=== PATIENT | male | born 1980 | race Caucasian/White ===

== ENCOUNTER 2021-08-12 19:51 | Inpatient (IN) | payer OTHER, SELFPAY ==
[2021-08-12 20:20] VITALS: BMI 51.5
[2021-08-12] MEDS: ALPRAZolam 0.5 MG TABLET 2 MG PO (21:01)
[2021-08-12] MEDS: Atorvastatin Calcium 10 MG TABLET PO (21:01)
[2021-08-12] MEDS: Amphetamine Mixed Salts 20 MG TABLET 30 MG PO (21:28)
[2021-08-12 22:19] VITALS: BP 98/50; PULSE 100; RESP 20; TEMP 36.6; O2SAT 96
--- NOTE | 2021-08-12 22:20 | PC.ADMIT ---
Pt is a 41y/o cisgender, , Niuean speaking who presented to the [facility] via ambulance, according to report from care team. Pt is alert and oriented X4, Jovial with pleasant affect.VSS, covid negative, Tox screen positive for cocaine, marijuana, amphetamine. Pt denies drug use when asked, endorsing the use of Marijuana. Pt reports SI of OD or cutting himself. Speech is clear with normal rhythm tone and arthur. Pt is calm and cooperative, reports that his life started taking a downward dive after his girlfriend left him. Pt denies SI/Depression. Pt states that he has a positive support system from both parents whom he shares the same dwelling with. Pt reports difficulty staying asleep. Admission orders obtained.
--- NOTE | 2021-08-13 | ECG_ITS ---
Test Reason : psychotropic med / htn Blood Pressure : / mmHG Vent. Rate : 108 BPM Atrial Rate : 108 BPM P-R Int : 164 ms QRS Dur : 098 ms QT Int : 328 ms P-R-T Axes : 046 027 055 degrees QTc Int : 439 ms Sinus tachycardia Otherwise normal ECG No previous ECGs available Referred By: Pascale Pedro Electronically Signed By:DIANA HENDERSON
[2021-08-13] MEDS: ALPRAZolam 0.5 MG TABLET 2 MG PO ×4 (05:02→20:09)
[2021-08-13 06:00] VITALS: BP 118/68; PULSE 101; RESP 14; TEMP 36.6; O2SAT 94
[2021-08-13] MEDS: lamoTRIgine 100 MG TABLET 300 MG PO (08:40)
[2021-08-13] MEDS: glipiZIDE XL 5 MG TAB.ER.24 PO (08:41)
[2021-08-13] MEDS: ARIPiprazole 20 MG TABLET PO (08:41)
[2021-08-13] MEDS: metFORMIN HCl 1,000 MG TABLET 1000 MG PO ×2 (08:41→16:39)
[2021-08-13] MEDS: lisinopriL 20 MG TABLET PO (08:42)
[2021-08-13] MEDS: Venlafaxine HCl ER 75 MG CAP.ER.24H 225 MG PO (08:42)
[2021-08-13] MEDS: Amphetamine Mixed Salts 20 MG TABLET 30 MG PO ×4 (08:43→20:08)
[2021-08-13 09:17] LABS: Estimated Average Glucose 160 mg/dL; Hemoglobin A1c % 7.2 %
[2021-08-13 09:31] LABS: Creatinine Clr Calc Pharmacy 157.5; Estimated Glomerular Filt Rate > 60
[2021-08-13 09:33] LABS: Alanine Aminotransferase 31 U/L (0-40); Albumin Level 4.1 g/dL (3.5-5.0); Alkaline Phosphatase 95 U/L (39-117); Aspartate Amino Transferase 18 U/L (5-37); Bilirubin Direct 0.2 mg/dL (0.0-0.5); Bilirubin Total 0.4 mg/dL (0.0-1.0); Cholesterol 159 mg/dL; HDL Cholesterol 26 mg/dL; LDL Cholesterol Calculated 99 mg/dl; Magnesium 2.1 mg/dL (1.6-2.6); Total Protein 6.6 g/dL (6.5-8.0); Triglycerides 173 mg/dL
[2021-08-13 09:56] LABS: Free T4 (Free Thyroxine) 0.88 ng/dL (0.71-1.85); Thyroid Stimulating Hormone 1.65 uIU/mL (0.32-4.0)
[2021-08-13 10:18] LABS: Vitamin B12 264 pg/mL (200-900)
--- NOTE | 2021-08-13 12:52 | P.HPPS_ITS ---
HPI Date of Service: 08/13/21 Chief Complaint: Overdose on Rx, bipolar depression Sources of Information: patient interviewed, chart reviewed and crisis/core team assessment reviewed Additional Sources of Information: Telephone call with Dr. Jt Nieto, pt's psychiatrist, who prescribes Xanax 2 mg 4 times daily; Adderall 30 mg 4 times daily, Lamictal ER 300 mg daily, Abilify 20 mg daily, Venlafaxine ER 225 mg daily. Pt has worked with Dr. Nieto for ~3 years. He is diagnosed with Borderline Personality Disorder and Substance Use Disorder. This regime has been effective for pt by history and Dr. Nieto is willing to continue with patient upon discharge. HPI Subjective Notes: Couch Warning and Conditional Voluntary Healthcare Proxy: No Guardianship: No Medical Problems Affecting Mental Status: No Narrative: 41 yo male, history of borderline personality disorder, alcohol use disorder in remission, and polysubstance abuse (cocaine/cannabis) presents in transfer from [facility] ER for admission s/p reported suicide attempt via OD of a reported combination of lisinopril and clonidine. This after being discharged from a 10 day in patient stay with [facility], representing in the ER for 5 hous, and being sent home. Pt reports he does not believe he wanted to , but wanted his pain to stop. Pt reports recent stressors-break up of a relationship, mom in [place] with new CVA currently in rehab and he is worried about her. States he has a 14 yo son, Jerel, who is his motivation for his 9 years of sobriety and is wanting to work on being stable, achieving balance, improved coping skills, increasing self-confidence. Reports he has not participated in therapy as much as he should have- I did not get to the root of the problem-I have no self-confidence, am co-dependent and angry- I do not like myself. States he was IP for 12 days and returned to ER on discharge day with SI. Reports he has [facility] care mgt and hopes to transfer to this area and get a alf assignment and a respite placement. Currently homeless and staying with friends. Past Psychiatric History: IP: 2021-3; 2020-5; 2019-7; [id number]; 2010-05 Total-17 OP: Therapy: Milagro Cedeno Medication: Dr. Jt Nieto [phone] DM: Manish Dill Trials: Several SA: Recent OD; Clonidine 2020 SIBS: Cutting Medical Evaluation Reviewed: Hospitalist Regina Pending [facility] Medical History (Updated 08/13/21 @ 14:56 by Pascale Pedro, SUSAN) Alcohol use disorder, severe, in sustained remission Bipolar II disorder Borderline personality disorder PTSD (post-traumatic stress disorder) Narrative: HTN-Lisinopril EHIKE he thinks, untreated Plaque Psoriasis-undiagnosed with sx present DM-Metformin, Glipizide HLD-Atorvastatin COVID-history, Has had Adam/Adam 2in1 vaccination he reports TIA x2 Denies TBI Seizure history-last in 2012-reports they were not withdrawal related Family History: ?Biological father with Bipolar Disorder No suicides No addiction Social History: Two brothers, one in [place], one in [place]. SPED throughout schooling, Participated in sports. Graduated 1997-vocational [employer] No college. 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 Substance History: Sober from alcohol since 11/14/12 Cannabis use Cocaine positive tox Trauma History: Emotional Diagnostics Vital Signs (24Hr): Vital Signs - 24 hr 08/12/21 22:19 08/13/21 06:00 Temperature 97.9 F 98 F Pulse Rate 100 101 H Respiratory Rate 20 14 Blood Pressure 98/50 L 118/68 Pulse Oximetry 96 94 BMI result Body Mass Index 51.5 Labs Results: 08/13/21 08:04 Labs: Laboratory Results - last 48 hr 08/13/21 08/13/21 08/13/21 08:04 08:04 08:04 Creatinine Estim Creat Clear Calc Estimated GFR Estimat Average Glucose 160 Hemoglobin A1c % 7.2 Magnesium 2.1 Total Bilirubin 0.4 Direct Bilirubin 0.2 AST 18 ALT 31 Alkaline Phosphatase 95 Total Protein 6.6 Albumin 4.1 Triglycerides 173 Cholesterol 159 LDL Cholesterol, Calc 99 HDL Cholesterol 26 Vitamin B12 264 Folate 11.0 TSH 1.65 Free T4 0.88 08/13/21 08:04 Creatinine 0.97 Estim Creat Clear Calc 157.5 Estimated GFR > 60 Estimat Average Glucose Hemoglobin A1c % Magnesium Total Bilirubin Direct Bilirubin AST ALT Alkaline Phosphatase Total Protein Albumin Triglycerides Cholesterol LDL Cholesterol, Calc HDL Cholesterol Vitamin B12 Folate TSH Free T4 EKG EKG: reviewed EKG Comment: 08/13/21 sinus tachycardia, normal ekg, vent rate 108, QTc 439 Meds/Allergies Meds Home Medications Acetaminophen (Acetaminophen 325 Mg Tablet) 650 mg PO Q6H PRN PRN Reason: Headache/Pain Mild Scale (1-3) Al Hydroxide/Mg Hydroxide (Magnesium Hydrox/Alum Hydrox 30 Ml Oral.Susp) 30 ml PO Q6H PRN PRN Reason: Heartburn/Nausea Alprazolam (Alprazolam 0.5 Mg Tablet) 2 mg PO QID ON LICENSE OF [facility] Last Admin: 08/13/21 12:41 Dose: 2 mg Documented by: Amphetamine/Dextroamphetamine (Amphetamine Mixed Salts 20 Mg Tablet) 30 mg PO QID ON LICENSE OF [facility] Last Admin: 08/13/21 12:07 Dose: 30 mg Documented by: Aripiprazole (Aripiprazole 20 Mg Tablet) 20 mg PO DAILY ON LICENSE OF [facility] Last Admin: 08/13/21 08:41 Dose: 20 mg Documented by: Atorvastatin Calcium (Atorvastatin Calcium 10 Mg Tablet) 10 mg PO BEDTIME ON LICENSE OF [facility] Last Admin: 08/12/21 21:01 Dose: 10 mg Documented by: Glipizide (Glipizide Xl 5 Mg Tab.Er.24) 5 mg PO DAILY ON LICENSE OF [facility] Last Admin: 08/13/21 08:41 Dose: 5 mg Documented by: Hydroxyzine HCl (Hydroxyzine Hcl 25 Mg Tablet) 25 mg PO Q6H PRN PRN Reason: Anxiety Lamotrigine (Lamotrigine 100 Mg Tablet) 150 mg PO BID ON LICENSE OF [facility] Lisinopril (Lisinopril 20 Mg Tablet) 20 mg PO DAILY ON LICENSE OF [facility]; Protocol Last Admin: 08/13/21 08:42 Dose: 20 mg Documented by: Magnesium Hydroxide (Milk Of Magnesia 30 Ml Oral.Susp) 30 ml PO DAILY PRN PRN Reason: Constipation Metformin HCl (Metformin Hcl 1,000 Mg Tablet) 1,000 mg PO BIDWM ON LICENSE OF [facility] Last Admin: 08/13/21 08:41 Dose: 1,000 mg Documented by: Trazodone HCl (Trazodone Hcl 50 Mg Tablet) 50 mg PO BEDTIME PRN PRN Reason: Insomnia Venlafaxine HCl (Venlafaxine Hcl Er 75 Mg Cap.Er.24h) 225 mg PO DAILY [facility] Last Admin: 08/13/21 08:42 Dose: 225 mg Documented by: Allergies Allergies Allergy/AdvReac Type Severity Reaction Status Date / Time chlorpromazine Allergy Mild Hives Verified 08/12/21 20:11 haloperidol [From Haldol] Allergy Mild Hives Verified 08/12/21 20:11 olanzapine [From Zyprexa] Allergy Mild Hives Verified 08/12/21 20:11 risperidone [From Risperdal] Allergy Mild Hives Verified 08/12/21 20:11 Mental Status Exam Mental Status Exam Patient Appearance: Appropriate Patient Orientation: Person, Place, Time and Situation Level of Consciousness: Alert Patient Behavior: Appropriate, Talkative, Cooperative and Good Eye Contact Mood Description: Depressed, Anxious and Apprehensive Affect Description: Constricted Patient Cognition Impaired: No Ability to Follow Directions: Good Speech Pattern: Spontaneous Speech Memory Description: Intact Hallucinations: None Delusions: Not Present Perceptual Disturbances: Depersonalization and Derealization Thought Process: Rumination Thought Content: positive for [place], positive for Circumstantial, positive for Goal Oriented and positive for Suicidal Ideation Depressive Symptoms: Increased Anxiety, Insomnia, Diff. Making Decisions, Difficulty Sleeping, Loss of Int. in Activity, Feelings of Worthlessness, Hopelessness, Isolating-Friends/Family, Feelings of Guilt, Unhappiness, Increased Fatigue, Thoughts of /Suicide, Low Self Esteem, Loss of Energy and Difficulty Concentrating Judgement: Fair Assessment & Plan Assessment & Plan (1) Bipolar II disorder: Status: Acute Code(s): F31.81 - Bipolar II disorder (2) PTSD (post-traumatic stress disorder): Status: Acute Code(s): F43.10 - Post-traumatic stress disorder, unspecified (3) Cannabis use disorder, moderate, dependence: Status: Acute Code(s): F12.20 - Cannabis dependence, uncomplicated (4) Cocaine use disorder, moderate, dependence: Status: Acute Code(s): F14.20 - Cocaine dependence, uncomplicated (5) Borderline personality disorder: Status: Acute Code(s): F60.3 - Borderline personality disorder Plan 41 yo male, hx of PTSD, Bipolar II, Borderline Personality Disorder, admitted after being out of hospital for approx 1 day and taking a reported OD of combi spike clonidine and lisinopril. Pt reports several issues with self-esteem, poor coping, and difficulty dealing with the loss of a relationship recently and with his mom having a recent CVA (lives in [facility]). Pt able to contract for safety on the unit. Requests [facility] area transfer to [facility] from [facility] and alf placement. Call to pt's out patient MD Dr. Nieto. Pt and Dr. Nieto are satisfied with regime. Dr. Nieto encourages changes if we believe they will be of help. Pt is mainly treated for Borderline Personality and substance abuse per Dr. Nieto and is welcome to return for treatment upon discharge. Patient educated on: therapeutic strategies Informed Consent: understands and further education needed Reason for continued inpatient stay Substantial Risk for: harm to self, inability to function and rapid decompensation
--- NOTE | 2021-08-13 14:24 | HO.PM.IMCN ---
History of Present Illness Data of Consult Service Date: 08/13/21 Requesting physician: Joy Moore Primary Care Provider: Unknown Physician HPI Reason for consult: medical management 41-year-old gentleman admitted to as a transfer from [facility] due to bipolar disorder, depression, overdose on treatment, patient admits to history of diabetes mellitus, hyperlipidemia and hypertension, complaining of rash both upper and lower extremity without associated itching, no allergy symptoms, denies fever , chills, denies chest pain, palpitation, denies shortness of breath, denies lightheadedness, dizziness or generalized weakness patient is compliant with home medications and admits to good blood sugar control at home. Review of Systems Review of Systems: General no headache no dizziness no fever chills. CVS no chest pain, no palpitation. Respiratory no cough, no sob. Gastrointestinal no nausea, no vomiting, no abdominal pain Yes all other systems are reviewed and are negative PMFSH Pertinent family history: mother had CVA in her 70s, not aware of biological father has 2 brothers healthy, no history of premature coronary artery disease or colon cancer. Social History Household Members: Family Household Members Other:: Parents Housing: House Do you presently have visiting nurse or other home services: No Patient Tobacco Use Status: Never used Tobacco Substance Use Type: Marijuana and Caffiene Substance Use Frequency: Daily Last Used Substance: Days (ago) Currently Displaying Signs/Symptoms of Drug Intoxication Withdrawal: No Any prior treatment program specific to substance use: No Have you been hit, kicked, punched, or otherwise hurt by someone within the past year? If so, by whom?: No Do you feel safe in your current relationship?: No Current Relationship Is there a partner from a previous relationship who is making you feel unsafe now?: No Are you made to feel afraid or neglected: No Spiritual Healthcare Practices: N/A Judaism Healthcare Practices: N/A Cultural Healthcare Practices: N/A Advance Directives: No Advance Directives Information Provided: No Advance Directives on File: No Do you have thoughts of harming others: None Do you have a plan to hurt others: No Plan Recently lost weight without trying: No Eating poorly because of decreased appetite: No Nutrition Risks: No Nutritional Risk Poor oral hygiene: No Meds Allergies Allergy/AdvReac Type Severity Reaction Status Date / Time chlorpromazine Allergy Mild Hives Verified 08/12/21 20:11 haloperidol [From Haldol] Allergy Mild Hives Verified 08/12/21 20:11 olanzapine [From Zyprexa] Allergy Mild Hives Verified 08/12/21 20:11 risperidone [From Risperdal] Allergy Mild Hives Verified 08/12/21 20:11 Active Medications: Current Medications Acetaminophen (Acetaminophen 325 Mg Tablet) 650 mg PO Q6H PRN PRN Reason: Headache/Pain Mild Scale (1-3) Al Hydroxide/Mg Hydroxide (Magnesium Hydrox/Alum Hydrox 30 Ml Oral.Susp) 30 ml PO Q6H PRN PRN Reason: Heartburn/Nausea Alprazolam (Alprazolam 0.5 Mg Tablet) 2 mg PO QID [facility] Last Admin: 08/13/21 12:41 Dose: 2 mg Documented by: Amphetamine/Dextroamphetamine (Amphetamine Mixed Salts 20 Mg Tablet) 30 mg PO QID [facility] Last Admin: 08/13/21 12:07 Dose: 30 mg Documented by: Aripiprazole (Aripiprazole 20 Mg Tablet) 20 mg PO DAILY [facility] Last Admin: 08/13/21 08:41 Dose: 20 mg Documented by: Atorvastatin Calcium (Atorvastatin Calcium 10 Mg Tablet) 10 mg PO BEDTIME [facility] Last Admin: 08/12/21 21:01 Dose: 10 mg Documented by: Glipizide (Glipizide Xl 5 Mg Tab.Er.24) 5 mg PO DAILY [facility] Last Admin: 08/13/21 08:41 Dose: 5 mg Documented by: Hydroxyzine HCl (Hydroxyzine Hcl 25 Mg Tablet) 25 mg PO Q6H PRN PRN Reason: Anxiety Lamotrigine (Lamotrigine 100 Mg Tablet) 150 mg PO BID [facility] Lisinopril (Lisinopril 20 Mg Tablet) 20 mg PO DAILY [facility]; Protocol Last Admin: 08/13/21 08:42 Dose: 20 mg Documented by: Magnesium Hydroxide (Milk Of Magnesia 30 Ml Oral.Susp) 30 ml PO DAILY PRN PRN Reason: Constipation Metformin HCl (Metformin Hcl 1,000 Mg Tablet) 1,000 mg PO BIDWM [facility] Last Admin: 08/13/21 08:41 Dose: 1,000 mg Documented by: Trazodone HCl (Trazodone Hcl 50 Mg Tablet) 50 mg PO BEDTIME PRN PRN Reason: Insomnia Venlafaxine HCl (Venlafaxine Hcl Er 75 Mg Cap.Er.24h) 225 mg PO DAILY [facility] Last Admin: 08/13/21 08:42 Dose: 225 mg Documented by: Physical Exam Vital Signs and Narrative: Vital Signs: Last Vital Signs Temp 98 F 08/13/21 06:00 Pulse 101 H 08/13/21 06:00 Resp 14 08/13/21 06:00 BP 118/68 08/13/21 06:00 Pulse Ox 94 08/13/21 06:00 BMI result Body Mass Index 51.5 Const: Other: General Awake alert, no acute distress. HEENT anicteric sclera Neck no JVD. CVS regular rate rhythm, Respiratory lungs clear to auscultation, no respiratory distress, no wheeze, no rhonchi. Gastrointestinal abdomen soft, nontender, bowel sounds audible Extremities no edema. Neuro nonfocal Skin multiple circular dry patches of rash both lower extremities/ elbow/ dorsum of hand Results Labs CBC and Chem 7: 08/13/21 08:04 Labs: Laboratory Results - last 24 hr 08/13/21 08/13/21 08/13/21 08:04 08:04 08:04 Estim Creat Clear Calc Estimated GFR Estimat Average Glucose 160 Hemoglobin A1c % 7.2 Magnesium 2.1 Total Bilirubin 0.4 Direct Bilirubin 0.2 AST 18 ALT 31 Alkaline Phosphatase 95 Total Protein 6.6 Albumin 4.1 Triglycerides 173 Cholesterol 159 LDL Cholesterol, Calc 99 HDL Cholesterol 26 Vitamin B12 264 Folate 11.0 TSH 1.65 Free T4 0.88 08/13/21 08:04 Estim Creat Clear Calc 157.5 Estimated GFR > 60 Estimat Average Glucose Hemoglobin A1c % Magnesium Total Bilirubin Direct Bilirubin AST ALT Alkaline Phosphatase Total Protein Albumin Triglycerides Cholesterol LDL Cholesterol, Calc HDL Cholesterol Vitamin B12 Folate TSH Free T4 Assessment and Plan (1) Morbid obesity: Status: Acute (2) Hyperlipidemia: Status: Acute (3) Diabetes mellitus: Status: Acute (4) Hypertension: Status: Acute Plan 41-year-old gentleman admitted to due to symptoms of depression and overdose on treatment, hospitalist team consulted for medical management. Diabetes mellitus type 2 will continue glipizide and metformin hemoglobin A1c 7.2 recommended diabetic diet, recommend blood sugar checks daily. hyperlipidemia continue Lipitor 10 mg LDL 99 with total cholesterol of 159 hypertension on lisinopril 20 mg daily, soft blood pressure needs close blood pressure monitoring morbid obesity recommend low-calorie diet and weight reduction since contributing diabetes and hyperlipidemia rash consistent with psoriasis recommend outpatient dermatology follow up. DVT prophylaxis early ambulation
[2021-08-13 18:00] VITALS: BP 127/74; PULSE 114; RESP 16; TEMP 36.5; O2SAT 96
[2021-08-13] MEDS: lamoTRIgine 100 MG TABLET 150 MG PO (20:11)
[2021-08-13] MEDS: Atorvastatin Calcium 10 MG TABLET PO (20:12)
[2021-08-14] MEDS: ALPRAZolam 0.5 MG TABLET 2 MG PO ×3 (01:31→23:11)
[2021-08-14 06:05] VITALS: BP 158/96; PULSE 99; RESP 18; TEMP 36.4; O2SAT 96
[2021-08-14 08:21] LABS: Vitamin D 25-OH Total 10.8 ng/mL (>30)
[2021-08-14] MEDS: glipiZIDE XL 5 MG TAB.ER.24 PO (08:25)
[2021-08-14] MEDS: Venlafaxine HCl ER 75 MG CAP.ER.24H 225 MG PO (08:25)
[2021-08-14] MEDS: metFORMIN HCl 1,000 MG TABLET 1000 MG PO ×2 (08:26→17:27)
[2021-08-14] MEDS: lisinopriL 20 MG TABLET PO (08:26)
[2021-08-14] MEDS: Amphetamine Mixed Salts 20 MG TABLET 30 MG PO ×4 (08:26→20:05)
[2021-08-14] MEDS: ARIPiprazole 20 MG TABLET PO (08:27)
[2021-08-14] MEDS: lamoTRIgine 100 MG TABLET 150 MG PO ×2 (11:18→14:50)
--- NOTE | 2021-08-14 14:25 | HO.PSYCHPN ---
Subjective Subjective Date of Service: 08/14/21 Reason For Visit: Overdose on Rx, bipolar depression Subjective Notes: Conditional Voluntary Interim History: Patient seen and discussed. Patient continues to be hypomanic. He is talkative. Calling his pharmacy in [facility] to get an override on his Lamotrigine XR. He is focused on that but able to be redirected when explained hospital system and pharmacy protocols and drug equivalencies/substitutions. Patient reports his mood is good. No SI. He denies any hallucinations. Asked for some medications to be adjusted to fit how he takes them at home. Medication Compliance: Yes Side effects from medications: No Attending Groups: Yes Mental Status Exam Mental Status Exam Patient Appearance: Appropriate Patient Orientation: Person, Place, Time and Situation Level of Consciousness: Awake and Appropriate Patient Behavior: Appropriate, Talkative, Hyperactive, Cooperative and Invasion - Personal Space Mood Description: Calm, Appropriate and Expansive Affect Description: Expansive Patient Cognition Impaired: No Ability to Follow Directions: Good Speech Pattern: Clear, Perseverating, Spontaneous Speech and Excessive Memory Description: Intact Hallucinations: None Delusions: Grandiose (ideation) Thought Process: Racing, Goal Oriented and Linear Thought Content: positive for Linear and positive for Perseveration Depressive Symptoms: Increased Anxiety, Feelings of Worthlessness, Hopelessness, Feelings of Guilt, Unhappiness, Thoughts of /Suicide and Low Self Esteem Abnormal Motor Activity Signs and Symptoms: Hyperactivity Judgement: Fair Diagnostics Vital Signs (24Hr): Vital Signs - 24 hr 08/13/21 18:00 08/14/21 06:05 Temperature 97.7 F 97.6 F Pulse Rate 114 H 99 Respiratory Rate 16 18 Blood Pressure 127/74 158/96 H Pulse Oximetry 96 96 BMI result Body Mass Index 51.5 Labs Results: 08/13/21 08:04 Labs: Laboratory Results - last 48 hr 08/13/21 08/13/21 08/13/21 08:04 08:04 08:04 Creatinine Estim Creat Clear Calc Estimated GFR Estimat Average Glucose 160 Hemoglobin A1c % 7.2 Magnesium 2.1 Total Bilirubin 0.4 Direct Bilirubin 0.2 AST 18 ALT 31 Alkaline Phosphatase 95 Total Protein 6.6 Albumin 4.1 Triglycerides 173 Cholesterol 159 LDL Cholesterol, Calc 99 HDL Cholesterol 26 Vitamin B12 264 25-OH Vitamin D Total Folate 11.0 TSH 1.65 Free T4 0.88 08/13/21 08/14/21 08:04 07:05 Creatinine 0.97 Estim Creat Clear Calc 157.5 Estimated GFR > 60 Estimat Average Glucose Hemoglobin A1c % Magnesium Total Bilirubin Direct Bilirubin AST ALT Alkaline Phosphatase Total Protein Albumin Triglycerides Cholesterol LDL Cholesterol, Calc HDL Cholesterol Vitamin B12 25-OH Vitamin D Total 10.8 Folate TSH Free T4 Medications Medications Current Medications Acetaminophen (Acetaminophen 325 Mg Tablet) 650 mg PO Q6H PRN PRN Reason: Headache/Pain Mild Scale (1-3) Al Hydroxide/Mg Hydroxide (Magnesium Hydrox/Alum Hydrox 30 Ml Oral.Susp) 30 ml PO Q6H PRN PRN Reason: Heartburn/Nausea Alprazolam (Alprazolam 0.5 Mg Tablet) 2 mg PO QID PRN PRN Reason: anxiety Last Admin: 08/14/21 11:16 Dose: 2 mg Documented by: Amphetamine/Dextroamphetamine (Amphetamine Mixed Salts 20 Mg Tablet) 30 mg PO QID [facility] Last Admin: 08/14/21 12:14 Dose: 30 mg Documented by: Aripiprazole (Aripiprazole 20 Mg Tablet) 20 mg PO DAILY [facility] Last Admin: 08/14/21 08:27 Dose: 20 mg Documented by: Atorvastatin Calcium (Atorvastatin Calcium 10 Mg Tablet) 10 mg PO BEDTIME [facility] Last Admin: 08/13/21 20:12 Dose: 10 mg Documented by: Glipizide (Glipizide Xl 5 Mg Tab.Er.24) 5 mg PO DAILY [facility] Last Admin: 08/14/21 08:25 Dose: 5 mg Documented by: Hydroxyzine HCl (Hydroxyzine Hcl 25 Mg Tablet) 25 mg PO Q6H PRN PRN Reason: Anxiety Lamotrigine (Lamotrigine 100 Mg Tablet) 150 mg PO BID [facility] Last Admin: 08/14/21 11:18 Dose: 150 mg Documented by: Lisinopril (Lisinopril 20 Mg Tablet) 20 mg PO DAILY [facility]; Protocol Last Admin: 08/14/21 08:26 Dose: 20 mg Documented by: Magnesium Hydroxide (Milk Of Magnesia 30 Ml Oral.Susp) 30 ml PO DAILY PRN PRN Reason: Constipation Metformin HCl (Metformin Hcl 1,000 Mg Tablet) 1,000 mg PO BIDWM [facility] Last Admin: 08/14/21 08:26 Dose: 1,000 mg Documented by: Trazodone HCl (Trazodone Hcl 50 Mg Tablet) 50 mg PO BEDTIME PRN PRN Reason: Insomnia Venlafaxine HCl (Venlafaxine Hcl Er 75 Mg Cap.Er.24h) 225 mg PO DAILY [facility] Last Admin: 08/14/21 08:25 Dose: 225 mg Documented by: Allergies Allergies Allergy/AdvReac Type Severity Reaction Status Date / Time chlorpromazine Allergy Mild Hives Verified 08/12/21 20:11 haloperidol [From Haldol] Allergy Mild Hives Verified 08/12/21 20:11 olanzapine [From Zyprexa] Allergy Mild Hives Verified 08/12/21 20:11 risperidone [From Risperdal] Allergy Mild Hives Verified 08/12/21 20:11 Assessment & Plan Assessment & Plan (1) Bipolar II disorder: Status: Acute Code(s): F31.81 - Bipolar II disorder (2) PTSD (post-traumatic stress disorder): Status: Acute Code(s): F43.10 - Post-traumatic stress disorder, unspecified (3) Cannabis use disorder, moderate, dependence: Status: Acute Code(s): F12.20 - Cannabis dependence, uncomplicated (4) Cocaine use disorder, moderate, dependence: Status: Acute Code(s): F14.20 - Cocaine dependence, uncomplicated (5) Borderline personality disorder: Status: Acute Code(s): F60.3 - Borderline personality disorder (6) Hypertension: Status: Acute Code(s): I10 - Essential (primary) hypertension (7) Diabetes mellitus: Status: Acute Code(s): E11.9 - Type 2 diabetes mellitus without complications (8) Hyperlipidemia: Status: Acute Code(s): E78.5 - Hyperlipidemia, unspecified (9) Morbid obesity: Status: Acute Code(s): E66.01 - Morbid (severe) obesity due to excess calories Plan 41 yo male, hx of PTSD, Bipolar II, Borderline Personality Disorder, admitted after being out of hospital for approx 1 day and taking a reported OD of combined clonidine and lisinopril. Pt reports several issues with self-esteem, poor coping, and difficulty dealing with the loss of a relationship recently and with his mom having a recent CVA (lives in [facility]). Pt able to contract for safety on the unit. Requests [facility] area transfer to [facility] from [facility] and shelter placement. Call to pt's out patient MD Dr. Nieto. Pt and Dr. Nieto are satisfied with regime. Dr. Nieto encourages changes if we believe they will be of help. Pt is mainly treated for Borderline Personality and substance abuse per Dr. Nieto and is welcome to return for treatment upon discharge. 08/14: Adjust medications to reflect dosing how he takes at home. Consider lowering Xanax and Adderall and increasing Abilify. I spent minutes with the patient and/or on the patient floor today, greater than?50% of which was spent counseling/coordinating care. Reason for contiued inpatient stay Substantial Risk for: harm to self and rapid decompensation
[2021-08-14 18:00] VITALS: BP 130/90; PULSE 122; RESP 16
[2021-08-15 06:20] VITALS: BP 136/94; PULSE 98; RESP 22; TEMP 36.2; O2SAT 96
[2021-08-15 06:41] LABS: Glucose, Whole Blood 123 mg/dL (60-115)
[2021-08-15] MEDS: ARIPiprazole 20 MG TABLET PO (08:54)
[2021-08-15] MEDS: metFORMIN HCl 1,000 MG TABLET 1000 MG PO ×2 (08:54→17:55)
[2021-08-15] MEDS: lamoTRIgine 100 MG TABLET 300 MG PO (08:54)
[2021-08-15] MEDS: lisinopriL 20 MG TABLET PO (08:54)
[2021-08-15] MEDS: Venlafaxine HCl ER 75 MG CAP.ER.24H 225 MG PO (08:54)
[2021-08-15] MEDS: glipiZIDE XL 5 MG TAB.ER.24 PO (08:55)
[2021-08-15] MEDS: Amphetamine Mixed Salts 20 MG TABLET 30 MG PO ×4 (08:55→20:25)
[2021-08-15] MEDS: Atorvastatin Calcium 10 MG TABLET PO (08:55)
[2021-08-15] MEDS: ALPRAZolam 0.5 MG TABLET 2 MG PO ×2 (09:19→14:39)
--- NOTE | 2021-08-15 11:17 | P.PNPSI_ITS ---
Subjective Subjective Date of Service: 08/15/21 Reason For Visit: Overdose on Rx, bipolar depression Interim History: Patient seen and discussed. Patient says this examiner and says that he is feeling sad today because it is his mother's birthday. He says that she is and at age 55 last year from a massive stroke.(that would have made her 13-14 when she had the patient). He says he worries about himself having a stroke as well. Patient's report is questionable and not always consistent. He has reported other things to the staff and there is also mention his mom being alive and living in [place] in other reports. He also says he is sad because he called his ex-girlfriend and the conversation did not go well. Patient also brings up ECT. He says he has history of that in 2001 and it was beneficial. When asking about whether his medications have been changed. Explained the process of ECT and but his outpatient psychiatrist would have to be on board as well. No SI. He denies any hallucinations. Review of Systems Review of Systems General no headache no dizziness no fever chills. CVS no chest pain, no palpitation. Respiratory no cough, no sob. Gastrointestinal no nausea, no vomiting, no abdominal pain Yes all other systems are reviewed and are negative Constitutional: Reports no additional constitutional complaints Eyes: Reports no additional eye complaints Reports system reviewed and no additional complaints, except as documented Cardiovascular: Reports no additional cardiovascular complaints Respiratory: Reports no additional respiratory complaints Gastrointestinal: Reports no additional gastrointestinal complaints Genitourinary: Reports no additional male genitourinary complaints Musculoskeletal: Reports no additional musculoskeletal complaints Skin/Breast: Reports system reviewed and no additional complaints, except as docu Reports system reviewed and no additional complaints, except as documented and Reports behavioral changes Psychiatric: Reports abnormal sleep pattern, Reports anxiety, Reports behavioral changes, Reports depression, Reports difficulty concentrating, Reports hopelessness, Reports anhedonia, Reports mood swings and Reports suicidal ideation Endocrine: Reports no additional endocrine complaints Hematologic/Lymphatic: Reports no additional hematologic/lymphatic complaints Allergic/Immunologic: Reports no additional allergic/immunologic complaints Mental Status Exam Mental Status Exam Patient Appearance: Appropriate Patient Orientation: Person, Place, Time and Situation Level of Consciousness: Awake and Appropriate Patient Behavior: Appropriate, Talkative, Hyperactive, Cooperative and Invasion - Personal Space Mood Description: Calm, Appropriate and Expansive Affect Description: Expansive Patient Cognition Impaired: No Ability to Follow Directions: Good Speech Pattern: Clear, Perseverating, Spontaneous Speech and Excessive Memory Description: Intact Hallucinations: None Delusions: Grandiose Thought Process: Intact Thought Content: positive for Flight of Ideas Depressive Symptoms: Increased Anxiety Diagnostics Vital Signs (24Hr): Vital Signs - 24 hr 08/14/21 18:00 08/15/21 06:20 Temperature 97.1 F Pulse Rate 122 H 98 Respiratory Rate 16 22 H Blood Pressure 130/90 H 136/94 H Pulse Oximetry 96 BMI result Body Mass Index 51.5 Labs Results: 08/13/21 08:04 Labs: Laboratory Results - last 48 hr 08/14/21 08/15/21 07:05 06:18 POC Glucose 123 H 25-OH Vitamin D Total 10.8 Medications Medications Current Medications Acetaminophen (Acetaminophen 325 Mg Tablet) 650 mg PO Q6H PRN PRN Reason: Headache/Pain Mild Scale (1-3) Al Hydroxide/Mg Hydroxide (Magnesium Hydrox/Alum Hydrox 30 Ml Oral.Susp) 30 ml PO Q6H PRN PRN Reason: Heartburn/Nausea Alprazolam (Alprazolam 0.5 Mg Tablet) 2 mg PO QID PRN PRN Reason: anxiety Last Admin: 08/15/21 09:19 Dose: 2 mg Documented by: Amphetamine/Dextroamphetamine (Amphetamine Mixed Salts 20 Mg Tablet) 30 mg PO QID [facility] Last Admin: 08/15/21 08:55 Dose: 30 mg Documented by: Aripiprazole (Aripiprazole 20 Mg Tablet) 20 mg PO DAILY [facility] Last Admin: 08/15/21 08:54 Dose: 20 mg Documented by: Atorvastatin Calcium (Atorvastatin Calcium 10 Mg Tablet) 10 mg PO DAILY [facility] Last Admin: 08/15/21 08:55 Dose: 10 mg Documented by: Glipizide (Glipizide Xl 5 Mg Tab.Er.24) 5 mg PO DAILY [facility] Last Admin: 08/15/21 08:55 Dose: 5 mg Documented by: Hydroxyzine HCl (Hydroxyzine Hcl 25 Mg Tablet) 25 mg PO Q6H PRN PRN Reason: Anxiety Lamotrigine (Lamotrigine 100 Mg Tablet) 300 mg PO DAILY [facility] Last Admin: 08/15/21 08:54 Dose: 300 mg Documented by: Lisinopril (Lisinopril 20 Mg Tablet) 20 mg PO DAILY [facility]; Protocol Last Admin: 08/15/21 08:54 Dose: 20 mg Documented by: Magnesium Hydroxide (Milk Of Magnesia 30 Ml Oral.Susp) 30 ml PO DAILY PRN PRN Reason: Constipation Metformin HCl (Metformin Hcl 1,000 Mg Tablet) 1,000 mg PO BIDWM [facility] Last Admin: 08/15/21 08:54 Dose: 1,000 mg Documented by: Trazodone HCl (Trazodone Hcl 50 Mg Tablet) 50 mg PO BEDTIME PRN PRN Reason: Insomnia Venlafaxine HCl (Venlafaxine Hcl Er 75 Mg Cap.Er.24h) 225 mg PO DAILY [facility] Last Admin: 08/15/21 08:54 Dose: 225 mg Documented by: Allergies Allergies Allergy/AdvReac Type Severity Reaction Status Date / Time chlorpromazine Allergy Mild Hives Verified 08/12/21 20:11 haloperidol [From Haldol] Allergy Mild Hives Verified 08/12/21 20:11 olanzapine [From Zyprexa] Allergy Mild Hives Verified 08/12/21 20:11 risperidone [From Risperdal] Allergy Mild Hives Verified 08/12/21 20:11 Assessment & Plan Assessment & Plan (1) Bipolar II disorder: Status: Acute Code(s): F31.81 - Bipolar II disorder (2) PTSD (post-traumatic stress disorder): Status: Acute Code(s): F43.10 - Post-traumatic stress disorder, unspecified (3) Cannabis use disorder, moderate, dependence: Status: Acute Code(s): F12.20 - Cannabis dependence, uncomplicated (4) Cocaine use disorder, moderate, dependence: Status: Acute Code(s): F14.20 - Cocaine dependence, uncomplicated (5) Borderline personality disorder: Status: Acute Code(s): F60.3 - Borderline personality disorder (6) Hypertension: Status: Acute Code(s): I10 - Essential (primary) hypertension (7) Diabetes mellitus: Status: Acute Code(s): E11.9 - Type 2 diabetes mellitus without complications (8) Hyperlipidemia: Status: Acute Code(s): E78.5 - Hyperlipidemia, unspecified (9) Morbid obesity: Status: Acute Code(s): E66.01 - Morbid (severe) obesity due to excess calories Plan 41 yo male, hx of PTSD, Bipolar II, Borderline Personality Disorder, admitted after being out of hospital for approx 1 day and taking a reported OD of combined clonidine and lisinopril. Pt reports several issues with self-esteem, poor coping, and difficulty dealing with the loss of a relationship recently and with his mom having a recent CVA (lives in [facility]). Pt able to contract for safety on the unit. Requests [facility] area transfer to [facility] from [facility] and assisted placement. Call to pt's out patient MD Dr. Nieto. Pt and Dr. Nieto are satisfied with regime. Dr. Nieto encourages changes if we believe they will be of help. Pt is mainly treated for Borderline Personality and substance abuse per Dr. Nieto and is welcome to return for treatment upon discharge. 4/2: Adjust medications to reflect dosing how he takes at home. Consider lowering Xanax and Adderall and increasing Abilify. 4/3: No change in medications. I spent minutes with the patient and/or on the patient floor today, greater than?50% of which was spent counseling/coordinating care. Reason for contiued inpatient stay Substantial Risk for: inability to function and rapid decompensation
[2021-08-15 18:00] VITALS: BP 132/74; PULSE 78; RESP 16; TEMP 36.4; O2SAT 96
[2021-08-16 06:00] VITALS: BP 121/69; PULSE 84; RESP 18; TEMP 36.3; O2SAT 99
[2021-08-16] MEDS: ALPRAZolam 0.5 MG TABLET 2 MG PO ×3 (06:43→18:43)
[2021-08-16 08:20] LABS: Glucose, Whole Blood 193 mg/dL (60-115)
[2021-08-16] MEDS: Amphetamine Mixed Salts 20 MG TABLET 30 MG PO ×4 (09:06→21:31)
[2021-08-16] MEDS: metFORMIN HCl 1,000 MG TABLET 1000 MG PO ×2 (09:06→16:53)
[2021-08-16] MEDS: Atorvastatin Calcium 10 MG TABLET PO (09:06)
[2021-08-16] MEDS: lisinopriL 20 MG TABLET PO (09:06)
[2021-08-16] MEDS: glipiZIDE XL 5 MG TAB.ER.24 PO (09:06)
[2021-08-16] MEDS: Venlafaxine HCl ER 75 MG CAP.ER.24H 225 MG PO (09:06)
[2021-08-16] MEDS: lamoTRIgine 100 MG TABLET 300 MG PO (09:06)
[2021-08-16] MEDS: ARIPiprazole 20 MG TABLET PO (09:07)
[2021-08-16 09:12] VITALS: BP 123/77; PULSE 106; RESP 14; TEMP 36.7; O2SAT 97
--- NOTE | 2021-08-16 14:39 | HO.PSYCHPN ---
Subjective Subjective Date of Service: 08/16/21 Reason For Visit: Overdose on Rx, bipolar depression Subjective Notes: Conditional Voluntary Healthcare Proxy: No Guardianship: No Medical Problems Affecting Mental Status: No Interim History: Team and pt report a difficult weekend with senait, grandiosity, intrusive sx, suicide notes shared. Placed on 5 minute checks with locked bathrooms. Pt able to contract for his safety today, checkes changed to 15 minute. Pt reports mom's birthday was [birth year]. Reports she has passed (reported she was in [place] in rehab s/p CVA on 08/13). Discussed history-56 admits reported since 2014. ECT in 2001 (4 treatments)-would be interested in a consult-states he spoke with the attending yesterday who told him it would be appropriate. I am not manic at all. Reports high Adderall use is to assist him in working two jobs and attending an evening class. Believes that the alexandre to maintaining his health is a positive therapeutic support network , i.e. club house, drop in center and work, to stay busy . I feel empty and am hurting. I need to fill the void and be validated as I have no self-validation. . Discussed medications. Refuses supplements (Vit D) as it upsets his stomach. Not interested in trials as by history he had a priapism which caused fear of medications. Discussed controversy over high dose Adderall and Xanax. Discussed increasing Abilify. Tw spoke with [facility] director of sales Carrie San MD who has known and treated pt for several years while he was connected with [facility]. Dr. San reports historically pt has been treated for bipolar disorder, borderline personality disorder, however has a significant substance abuse history. He has been asked to leave several programs and living situations due to his actions, lability, allegations of selling his medications and having significant blow ups with his team, at times threatening team members if his needs are not immediately addressed. Recently, pt has spent a great deal of time as an inpatient, with a long history of suicide attemptsand feeling unable to care for himself independently. [facility] is readily available to pt. They need to have pt give them some clarity as to what he is looking for and what area does he want to live in, so they may connect him with the proper services and assist him in success. They do recommend that he change out patient providers and change to other medications, not adderall or benzodiazepines, however both pt and Dr. Nieto have declined to do this. [facility] E[facility]varria is available to Ad to assist him. Discussed Abilify increase with pt who is in agreement. Later in the day, he changed his mind, citing hx of SE with an increase in dosage. Medication Compliance: Yes Side effects from medications: No Attending Groups: Intermittent Review of Systems Acute medical concerns: No Medical Review of Systems: unchanged Review of Systems Psychiatric: Reports anxiety, Reports depression, Reports difficulty concentrating, Reports hopelessness, Reports anhedonia, Reports mood swings, Reports paranoia and Reports suicidal ideation Mental Status Exam Mental Status Exam Patient Appearance: Appropriate Patient Orientation: Person, Place, Time and Situation Level of Consciousness: Awake and Alert Patient Behavior: Talkative, Hyperactive, Anxious, Distractible and Good Eye Contact Mood Description: Depressed, Anxious, Nervous and Apprehensive Affect Description: Labile and Expansive Patient Cognition Impaired: No Ability to Follow Directions: Good Speech Pattern: Spontaneous Speech Memory Description: Intact Hallucinations: None Delusions: Paranoid Ideation and Grandiose Perceptual Disturbances: Depersonalization and Derealization Thought Process: Distracted Thought Content: positive for [place], positive for Circumstantial, positive for Tangential and positive for Suicidal Ideation (denies) Depressive Symptoms: Increased Anxiety, Diff. Making Decisions and Thoughts of /Suicide (denies) Abnormal Motor Activity Signs and Symptoms: Restlessness Judgement: Fair Diagnostics Vital Signs (24Hr): Vital Signs - 24 hr 08/15/21 18:00 08/16/21 06:00 08/16/21 09:12 Temperature 97.6 F 97.4 F 98.0 F Pulse Rate 78 84 106 H Respiratory Rate 16 18 14 Blood Pressure 132/74 121/69 123/77 Pulse Oximetry 96 99 97 BMI result Body Mass Index 51.5 Labs Results: 08/13/21 08:04 Labs: Laboratory Results - last 48 hr 08/15/21 08/16/21 06:18 08:15 POC Glucose 123 H 193 H Medications Medications Current Medications Acetaminophen (Acetaminophen 325 Mg Tablet) 650 mg PO Q6H PRN PRN Reason: Headache/Pain Mild Scale (1-3) Al Hydroxide/Mg Hydroxide (Magnesium Hydrox/Alum Hydrox 30 Ml Oral.Susp) 30 ml PO Q6H PRN PRN Reason: Heartburn/Nausea Alprazolam (Alprazolam 0.5 Mg Tablet) 2 mg PO QID PRN PRN Reason: anxiety Last Admin: 08/16/21 11:22 Dose: 2 mg Documented by: Amphetamine/Dextroamphetamine (Amphetamine Mixed Salts 20 Mg Tablet) 30 mg PO QID ON LICENSE OF [facility] Last Admin: 08/16/21 12:33 Dose: 30 mg Documented by: Aripiprazole (Aripiprazole 30 Mg Tablet) 30 mg PO DAILY ON LICENSE OF [facility] Atorvastatin Calcium (Atorvastatin Calcium 10 Mg Tablet) 10 mg PO DAILY ON LICENSE OF [facility] Last Admin: 08/16/21 09:06 Dose: 10 mg Documented by: Glipizide (Glipizide Xl 5 Mg Tab.Er.24) 5 mg PO DAILY ON LICENSE OF [facility] Last Admin: 08/16/21 09:06 Dose: 5 mg Documented by: Hydroxyzine HCl (Hydroxyzine Hcl 25 Mg Tablet) 25 mg PO Q6H PRN PRN Reason: Anxiety Lamotrigine (Lamotrigine 100 Mg Tablet) 300 mg PO DAILY ON LICENSE OF [facility] Last Admin: 08/16/21 09:06 Dose: 300 mg Documented by: Lisinopril (Lisinopril 20 Mg Tablet) 20 mg PO DAILY ON LICENSE OF [facility]; Protocol Last Admin: 08/16/21 09:06 Dose: 20 mg Documented by: Magnesium Hydroxide (Milk Of Magnesia 30 Ml Oral.Susp) 30 ml PO DAILY PRN PRN Reason: Constipation Metformin HCl (Metformin Hcl 1,000 Mg Tablet) 1,000 mg PO BIDWM ON LICENSE OF [facility] Last Admin: 08/16/21 09:06 Dose: 1,000 mg Documented by: Trazodone HCl (Trazodone Hcl 50 Mg Tablet) 50 mg PO BEDTIME PRN PRN Reason: Insomnia Venlafaxine HCl (Venlafaxine Hcl Er 75 Mg Cap.Er.24h) 225 mg PO DAILY ON LICENSE OF [facility] Last Admin: 08/16/21 09:06 Dose: 225 mg Documented by: Allergies Allergies Allergy/AdvReac Type Severity Reaction Status Date / Time chlorpromazine Allergy Mild Hives Verified 08/12/21 20:11 haloperidol [From Haldol] Allergy Mild Hives Verified 08/12/21 20:11 olanzapine [From Zyprexa] Allergy Mild Hives Verified 08/12/21 20:11 risperidone [From Risperdal] Allergy Mild Hives Verified 08/12/21 20:11 Assessment & Plan Assessment & Plan (1) Bipolar II disorder: Status: Acute Code(s): F31.81 - Bipolar II disorder (2) PTSD (post-traumatic stress disorder): Status: Acute Code(s): F43.10 - Post-traumatic stress disorder, unspecified (3) Cannabis use disorder, moderate, dependence: Status: Acute Code(s): F12.20 - Cannabis dependence, uncomplicated (4) Cocaine use disorder, moderate, dependence: Status: Acute Code(s): F14.20 - Cocaine dependence, uncomplicated (5) Borderline personality disorder: Status: Acute Code(s): F60.3 - Borderline personality disorder (6) Hypertension: Status: Acute Code(s): I10 - Essential (primary) hypertension (7) Diabetes mellitus: Status: Acute Code(s): E11.9 - Type 2 diabetes mellitus without complications (8) Hyperlipidemia: Status: Acute Code(s): E78.5 - Hyperlipidemia, unspecified (9) Morbid obesity: Status: Acute Code(s): E66.01 - Morbid (severe) obesity due to excess calories Plan 41 yo male, hx of PTSD, Bipolar II, Borderline Personality Disorder, admitted after being out of hospital for approx 1 day and taking a reported OD of combined clonidine and lisinopril. Pt reports several issues with self-esteem, poor coping, and difficulty dealing with the loss of a relationship recently and with his mom having a recent CVA (lives in [facility]). Pt able to contract for safety on the unit. Requests [facility] area transfer to [facility] from [facility] and long-term placement. Call to pt's out patient MD Dr. Nieto. Pt and Dr. Nieto are satisfied with regime. Dr. Nieto encourages changes if we believe they will be of help. Pt is mainly treated for Borderline Personality and substance abuse per Dr. Nieto and is welcome to return for treatment upon discharge. 2: Adjust medications to reflect dosing how he takes at home. Consider lowering Xanax and Adderall and increasing Abilify. 08/15: No change in medications. 08/16/21: Increase Abilify to 30 mg daily-pt then changed his mind and we will return it to 20 mg daily. Discharge planning for pt to return to his area, work with his [facility] care team to find services of his choice. I spent minutes with the patient and/or on the patient floor today, greater than?50% of which was spent counseling/coordinating care. Patient educated on: medication risk/benefits and therapeutic strategies Informed Consent: understands Reason for contiued inpatient stay Substantial Risk for: harm to self, inability to function and rapid decompensation
[2021-08-16 18:00] VITALS: BP 128/83; PULSE 103; RESP 16; TEMP 36.9; O2SAT 96
[2021-08-17] MEDS: ALPRAZolam 0.5 MG TABLET 2 MG PO ×2 (06:23→15:51)
[2021-08-17 06:50] LABS: Glucose, Whole Blood 164 mg/dL (60-115)
[2021-08-17] MEDS: Venlafaxine HCl ER 75 MG CAP.ER.24H 225 MG PO (08:13)
[2021-08-17] MEDS: glipiZIDE XL 5 MG TAB.ER.24 PO (08:13)
[2021-08-17] MEDS: Amphetamine Mixed Salts 20 MG TABLET 30 MG PO ×4 (08:13→20:10)
[2021-08-17] MEDS: lisinopriL 20 MG TABLET PO (08:14)
[2021-08-17] MEDS: Atorvastatin Calcium 10 MG TABLET PO (08:14)
[2021-08-17] MEDS: metFORMIN HCl 1,000 MG TABLET 1000 MG PO ×2 (08:14→15:51)
[2021-08-17] MEDS: ARIPiprazole 20 MG TABLET PO (08:14)
[2021-08-17 08:17] VITALS: BP 126/84; PULSE 114; RESP 16; TEMP 37; O2SAT 95
--- NOTE | 2021-08-17 13:13 | PC.NURSE ---
Ad self-harmed on the unit this shift with the plastic cap to a hospital supplied toiletry bottle. He superficially scratched the front of his neck and quin[place] blood. Ad stated hours after the incident, while in a meeting with his SW, [employer], and RN, that it was impulsive and not a suicide attempt nor intentional self-harm, I was impulsive. I think that I really need a good discharge plan . At that time Ad seemed to accept that he may not have his ideal discharge plan and discharge to a long-term. This is incongruent with the statements Ad made around the time of the incident. It was reported by staff that before he self-harmed Ad was asking for his cell phone to listen to music on a Fresh Air Break. He was offered the unit approved methods for music in the hospital; radio headphones or TV. Ad declined these offers and reported that he had used his phone in the past, I'm really anxious. I'm not trying to manipulate you but I really need to get my phone and go outside... I really need my phone to go outside or I'm going to hurt myself . After the self-harming incident Ad approached staff who was engaged with another patient in that other patient's room and stated, Look what I did. I tried to kill myself because of you . Hours later, after the aforementioned meeting with the treatment team, Ad was overheard on the phone stating, I'm in a better place. I don't want to hurt myself anymore . Ad continued to focus on his optimal discharge plan; looking up numbers on his cell phone, making calls on the patient phone, asking his social science instructor to call multiple places for him but refusing to sign Releases of Information when offered, attempting to flag down another social science instructor, and getting angry with staff for trying to set limits with him for allowing staff to attend to the other patients on the unit. He had been making vague threats against his social science instructor in the afternoon and stated, I don't feel safe discharging to the long-term . Ad also became upset about the ongoing increased observation, Can you call the doctor to see if I can come off of 1:1 and go back on 5 minute checks?... So I'm gonna have someone staying in the room with me and watch me sleep? Fucking great and walked away from staff.
--- NOTE | 2021-08-17 16:17 | HO.PSYCHPN ---
Subjective Subjective Date of Service: 08/17/21 Reason For Visit: Overdose on Rx, bipolar depression Subjective Notes: Conditional Voluntary Healthcare Proxy: No Guardianship: No Medical Problems Affecting Mental Status: No Interim History: Ad struggling with boundaries/expectations and balance today. Became angry with team and scratched his neck/throat area with a broken cap from a deodarant cannister, blaming team for making his do this. Tells tw I was not suicidal, but frustrated. Tells team, your actions made me make a suicide attempt. Pt making several calls to [facility], [facility], his insurance company. Irritable, labile, SIBS, multiple demands, difficult to accomodate. Care discussed with Dr. Cruz who will meet with pt in consultation on 08/18/21. Behavioral planning completed by Kole Landers RN who reviewed with pt who agreed to follow the plan. Multiple requests regarding placement, services etc. Pt's [facility] team is very willing to assist him in finding services. They need to know what area he wants to live in and what services he needs so they may assist him properly. Medication Compliance: Yes Side effects from medications: No Attending Groups: Intermittent Review of Systems Acute medical concerns: No Medical Review of Systems: unchanged Review of Systems: HTN Review of Systems Reports behavioral changes Psychiatric: Reports anxiety, Reports behavioral changes, Reports depression, Reports hopelessness, Reports irritability, Reports anhedonia, Reports mood swings, Reports paranoia and Reports suicidal ideation (intermittent) Mental Status Exam Mental Status Exam Patient Appearance: Appropriate Patient Orientation: Person, Place, Time and Situation Level of Consciousness: Awake and Alert Patient Behavior: Talkative, Hyperactive, Anxious, Distractible and Good Eye Contact Mood Description: Depressed, Anxious, Nervous and Apprehensive Affect Description: Labile and Expansive Patient Cognition Impaired: No Ability to Follow Directions: Good Speech Pattern: Spontaneous Speech Memory Description: Intact Hallucinations: None Delusions: Paranoid Ideation and Grandiose Perceptual Disturbances: Depersonalization and Derealization Thought Process: Distracted Thought Content: positive for [place], positive for Circumstantial, positive for Tangential and positive for Suicidal Ideation (denies) Depressive Symptoms: Increased Anxiety, Diff. Making Decisions and Thoughts of /Suicide (denies) Abnormal Motor Activity Signs and Symptoms: Restlessness Judgement: Fair Diagnostics Vital Signs (24Hr): Vital Signs - 24 hr 08/16/21 18:00 08/17/21 08:17 Temperature 98.4 F 98.6 F Pulse Rate 103 H 114 H Respiratory Rate 16 16 Blood Pressure 128/83 126/84 Pulse Oximetry 96 95 BMI result Body Mass Index 51.5 Labs Results: 08/13/21 08:04 Labs: Laboratory Results - last 48 hr 08/16/21 08/17/21 08:15 06:33 POC Glucose 193 H 164 H Medications Medications Current Medications Acetaminophen (Acetaminophen 325 Mg Tablet) 650 mg PO Q6H PRN PRN Reason: Headache/Pain Mild Scale (1-3) Al Hydroxide/Mg Hydroxide (Magnesium Hydrox/Alum Hydrox 30 Ml Oral.Susp) 30 ml PO Q6H PRN PRN Reason: Heartburn/Nausea Alprazolam (Alprazolam 0.5 Mg Tablet) 2 mg PO QID PRN PRN Reason: anxiety Last Admin: 08/17/21 15:51 Dose: 2 mg Documented by: Amphetamine/Dextroamphetamine (Amphetamine Mixed Salts 20 Mg Tablet) 30 mg PO QID [facility] Last Admin: 08/17/21 15:51 Dose: 30 mg Documented by: Aripiprazole (Aripiprazole 20 Mg Tablet) 20 mg PO DAILY [facility] Last Admin: 08/17/21 08:14 Dose: 20 mg Documented by: Atorvastatin Calcium (Atorvastatin Calcium 10 Mg Tablet) 10 mg PO DAILY [facility] Last Admin: 08/17/21 08:14 Dose: 10 mg Documented by: Glipizide (Glipizide Xl 5 Mg Tab.Er.24) 5 mg PO DAILY [facility] Last Admin: 08/17/21 08:13 Dose: 5 mg Documented by: Hydroxyzine HCl (Hydroxyzine Hcl 25 Mg Tablet) 25 mg PO Q6H PRN PRN Reason: Anxiety Lisinopril (Lisinopril 20 Mg Tablet) 20 mg PO DAILY [facility]; Protocol Last Admin: 08/17/21 08:14 Dose: 20 mg Documented by: Magnesium Hydroxide (Milk Of Magnesia 30 Ml Oral.Susp) 30 ml PO DAILY PRN PRN Reason: Constipation Metformin HCl (Metformin Hcl 1,000 Mg Tablet) 1,000 mg PO BIDWM [facility] Last Admin: 08/17/21 15:51 Dose: 1,000 mg Documented by: Patient Own Med ( Lamotrigine Er 300mg ) 1 each PO DAILY [facility] Last Admin: 08/17/21 08:13 Dose: 1 each Documented by: Trazodone HCl (Trazodone Hcl 50 Mg Tablet) 50 mg PO BEDTIME PRN PRN Reason: Insomnia Venlafaxine HCl (Venlafaxine Hcl Er 75 Mg Cap.Er.24h) 225 mg PO DAILY [facility] Last Admin: 08/17/21 08:13 Dose: 225 mg Documented by: Ziprasidone (Ziprasidone 20 Mg Capsule) 20 mg PO BID PRN PRN Reason: agitation, violence Allergies Allergies Allergy/AdvReac Type Severity Reaction Status Date / Time chlorpromazine Allergy Mild Hives Verified 08/12/21 20:11 haloperidol [From Haldol] Allergy Mild Hives Verified 08/12/21 20:11 olanzapine [From Zyprexa] Allergy Mild Hives Verified 08/12/21 20:11 risperidone [From Risperdal] Allergy Mild Hives Verified 08/12/21 20:11 Assessment & Plan Assessment & Plan (1) Bipolar II disorder: Status: Acute Code(s): F31.81 - Bipolar II disorder (2) PTSD (post-traumatic stress disorder): Status: Acute Code(s): F43.10 - Post-traumatic stress disorder, unspecified (3) Cannabis use disorder, moderate, dependence: Status: Acute Code(s): F12.20 - Cannabis dependence, uncomplicated (4) Cocaine use disorder, moderate, dependence: Status: Acute Code(s): F14.20 - Cocaine dependence, uncomplicated (5) Borderline personality disorder: Status: Acute Code(s): F60.3 - Borderline personality disorder (6) Hypertension: Status: Acute Code(s): I10 - Essential (primary) hypertension (7) Diabetes mellitus: Status: Acute Code(s): E11.9 - Type 2 diabetes mellitus without complications (8) Hyperlipidemia: Status: Acute Code(s): E78.5 - Hyperlipidemia, unspecified (9) Morbid obesity: Status: Acute Code(s): E66.01 - Morbid (severe) obesity due to excess calories Plan 41 yo male, hx of PTSD, Bipolar II, Borderline Personality Disorder, admitted after being out of hospital for approx 1 day and taking a reported OD of combined clonidine and lisinopril. Pt reports several issues with self-esteem, poor coping, and difficulty dealing with the loss of a relationship recently and with his mom having a recent CVA (lives in [facility]). Pt able to contract for safety on the unit. Requests [facility] area transfer to [facility] from [facility] and care home placement. Call to pt's out patient MD Dr. Nieto. Pt and Dr. Nieto are satisfied with regime. Dr. Nieto encourages changes if we believe they will be of help. Pt is mainly treated for Borderline Personality and substance abuse per Dr. Nieto and is welcome to return for treatment upon discharge. 08/14: Adjust medications to reflect dosing how he takes at home. Consider lowering Xanax and Adderall and increasing Abilify. 08/15: No change in medications. 08/16/21: Increase Abilify to 30 mg daily-pt then changed his mind and we will return it to 20 mg daily. Discharge planning for pt to return to his area, work with his [facility] care team to find services of his choice. 08/17/21: No medication changes. Work with pt to set goals for discharge planning and return to his home area. I spent minutes with the patient and/or on the patient floor today, greater than?50% of which was spent counseling/coordinating care. Patient educated on: medication risk/benefits and therapeutic strategies Informed Consent: understands and further education needed Reason for contiued inpatient stay Substantial Risk for: harm to self, inability to function and rapid decompensation
[2021-08-17 17:02] VITALS: BP 145/89; PULSE 115; RESP 16; TEMP 35.8; O2SAT 95
[2021-08-18] MEDS: lisinopriL 20 MG TABLET PO (07:57)
[2021-08-18] MEDS: ARIPiprazole 20 MG TABLET PO (07:57)
[2021-08-18] MEDS: Atorvastatin Calcium 10 MG TABLET PO (07:57)
[2021-08-18] MEDS: glipiZIDE XL 5 MG TAB.ER.24 PO (07:57)
[2021-08-18] MEDS: ALPRAZolam 0.5 MG TABLET 2 MG PO ×2 (07:57→19:28)
[2021-08-18] MEDS: Venlafaxine HCl ER 75 MG CAP.ER.24H 225 MG PO (07:57)
[2021-08-18] MEDS: Amphetamine Mixed Salts 20 MG TABLET 30 MG PO ×4 (07:58→22:37)
[2021-08-18] MEDS: metFORMIN HCl 1,000 MG TABLET 1000 MG PO ×2 (08:03→17:02)
[2021-08-18 08:06] VITALS: BP 149/86; PULSE 104; TEMP 36.4; O2SAT 95
--- NOTE | 2021-08-18 16:33 | HO.PSYCHPN ---
Subjective Subjective Date of Service: 08/18/21 Reason For Visit: Overdose on Rx, bipolar depression Subjective Notes: Conditional Voluntary Healthcare Proxy: No Guardianship: No Medical Problems Affecting Mental Status: No Interim History: Met with pt and Charly SEE. Pt following behavioral plan of care and meeting with his primary RN, Ad Bashir every two hours. Pt reports, all I want is a good transition plan Asking for the return of ACCS, respite admit with transition to [place] and the opportunity to work. Pt has made an appt with Dr. Nieto for 08/31 11am We agreed to change his checks to 5 minute-he is able to discuss that he is feeling safe. He asks for discharge 08/26. He is informed that Dr. Cruz will meet with him, however, for general consult, not for ECT. Requests we attempt to consolidate Venlafaxine and submit a PA. Medication Compliance: Yes Side effects from medications: No Attending Groups: Intermittent Review of Systems Acute medical concerns: No Medical Review of Systems: unchanged Review of Systems Reports behavioral changes Psychiatric: Reports anxiety, Reports behavioral changes, Reports depression, Reports difficulty concentrating, Reports hopelessness, Reports irritability, Reports anhedonia, Reports mood swings and Reports paranoia Mental Status Exam Mental Status Exam Patient Appearance: Appropriate Patient Orientation: Person, Place, Time and Situation Level of Consciousness: Awake and Alert Patient Behavior: Talkative, Hyperactive, Anxious, Distractible and Good Eye Contact Mood Description: Depressed, Anxious, Nervous and Apprehensive Affect Description: Labile and Expansive Patient Cognition Impaired: No Ability to Follow Directions: Good Speech Pattern: Spontaneous Speech Memory Description: Intact Hallucinations: None Delusions: Paranoid Ideation and Grandiose Perceptual Disturbances: Depersonalization and Derealization Thought Process: Distracted Thought Content: positive for [place], positive for Circumstantial, positive for Tangential and positive for Suicidal Ideation (denies) Depressive Symptoms: Increased Anxiety, Diff. Making Decisions and Thoughts of /Suicide (denies) Abnormal Motor Activity Signs and Symptoms: Restlessness Judgement: Fair Diagnostics Vital Signs (24Hr): Vital Signs - 24 hr 08/17/21 17:02 08/18/21 08:06 Temperature 96.4 F L 97.5 F Pulse Rate 115 H 104 H Respiratory Rate 16 Blood Pressure 145/89 H 149/86 H Pulse Oximetry 95 95 BMI result Body Mass Index 51.5 Labs Results: 08/13/21 08:04 Labs: Laboratory Results - last 48 hr 08/17/21 06:33 POC Glucose 164 H Medications Medications Current Medications Acetaminophen (Acetaminophen 325 Mg Tablet) 650 mg PO Q6H PRN PRN Reason: Headache/Pain Mild Scale (1-3) Al Hydroxide/Mg Hydroxide (Magnesium Hydrox/Alum Hydrox 30 Ml Oral.Susp) 30 ml PO Q6H PRN PRN Reason: Heartburn/Nausea Alprazolam (Alprazolam 0.5 Mg Tablet) 2 mg PO QID PRN PRN Reason: anxiety Last Admin: 08/18/21 07:57 Dose: 2 mg Documented by: Amphetamine/Dextroamphetamine (Amphetamine Mixed Salts 20 Mg Tablet) 30 mg PO QID REPLACED BY [facility] Last Admin: 08/18/21 12:47 Dose: 30 mg Documented by: Aripiprazole (Aripiprazole 20 Mg Tablet) 20 mg PO DAILY REPLACED BY [facility] Last Admin: 08/18/21 07:57 Dose: 20 mg Documented by: Atorvastatin Calcium (Atorvastatin Calcium 10 Mg Tablet) 10 mg PO DAILY REPLACED BY [facility] Last Admin: 08/18/21 07:57 Dose: 10 mg Documented by: Glipizide (Glipizide Xl 5 Mg Tab.Er.24) 5 mg PO DAILY REPLACED BY [facility] Last Admin: 08/18/21 07:57 Dose: 5 mg Documented by: Hydroxyzine HCl (Hydroxyzine Hcl 25 Mg Tablet) 25 mg PO Q6H PRN PRN Reason: Anxiety Lisinopril (Lisinopril 20 Mg Tablet) 20 mg PO DAILY REPLACED BY [facility]; Protocol Last Admin: 08/18/21 07:57 Dose: 20 mg Documented by: Magnesium Hydroxide (Milk Of Magnesia 30 Ml Oral.Susp) 30 ml PO DAILY PRN PRN Reason: Constipation Metformin HCl (Metformin Hcl 1,000 Mg Tablet) 1,000 mg PO BIDWM REPLACED BY [facility] Last Admin: 08/18/21 08:03 Dose: 1,000 mg Documented by: Patient Own Med ( Lamotrigine Er 300mg ) 1 each PO DAILY REPLACED BY [facility] Last Admin: 08/18/21 08:02 Dose: 1 each Documented by: Trazodone HCl (Trazodone Hcl 50 Mg Tablet) 50 mg PO BEDTIME PRN PRN Reason: Insomnia Venlafaxine HCl (Venlafaxine Hcl Er 75 Mg Cap.Er.24h) 225 mg PO DAILY REPLACED BY [facility] Last Admin: 08/18/21 07:57 Dose: 225 mg Documented by: Ziprasidone (Ziprasidone 20 Mg Capsule) 20 mg PO BID PRN PRN Reason: agitation, violence Allergies Allergies Allergy/AdvReac Type Severity Reaction Status Date / Time chlorpromazine Allergy Mild Hives Verified 08/12/21 20:11 haloperidol [From Haldol] Allergy Mild Hives Verified 08/12/21 20:11 olanzapine [From Zyprexa] Allergy Mild Hives Verified 08/12/21 20:11 risperidone [From Risperdal] Allergy Mild Hives Verified 08/12/21 20:11 Assessment & Plan Assessment & Plan (1) Bipolar II disorder: Status: Acute Code(s): F31.81 - Bipolar II disorder (2) PTSD (post-traumatic stress disorder): Status: Acute Code(s): F43.10 - Post-traumatic stress disorder, unspecified (3) Cannabis use disorder, moderate, dependence: Status: Acute Code(s): F12.20 - Cannabis dependence, uncomplicated (4) Cocaine use disorder, moderate, dependence: Status: Acute Code(s): F14.20 - Cocaine dependence, uncomplicated (5) Borderline personality disorder: Status: Acute Code(s): F60.3 - Borderline personality disorder (6) Hypertension: Status: Acute Code(s): I10 - Essential (primary) hypertension (7) Diabetes mellitus: Status: Acute Code(s): E11.9 - Type 2 diabetes mellitus without complications (8) Hyperlipidemia: Status: Acute Code(s): E78.5 - Hyperlipidemia, unspecified (9) Morbid obesity: Status: Acute Code(s): E66.01 - Morbid (severe) obesity due to excess calories Plan 41 yo male, hx of PTSD, Bipolar II, Borderline Personality Disorder, admitted after being out of hospital for approx 1 day and taking a reported OD of combined clonidine and lisinopril. Pt reports several issues with self-esteem, poor coping, and difficulty dealing with the loss of a relationship recently and with his mom having a recent CVA (lives in [facility]). Pt able to contract for safety on the unit. Requests [facility] area transfer to [facility] from [facility] and care home placement. Call to pt's out patient MD Dr. Nieto. Pt and Dr. Nieto are satisfied with regime. Dr. Nieto encourages changes if we believe they will be of help. Pt is mainly treated for Borderline Personality and substance abuse per Dr. Nieto and is welcome to return for treatment upon discharge. 08/14: Adjust medications to reflect dosing how he takes at home. Consider lowering Xanax and Adderall and increasing Abilify. 08/15: No change in medications. 08/16/21: Increase Abilify to 30 mg daily-pt then changed his mind and we will return it to 20 mg daily. Discharge planning for pt to return to his area, work with his [facility] care team to find services of his choice. 08/17/21: No medication changes. Work with pt to set goals for discharge planning and return to his home area. 08/18/21: Continue plan of care. I spent minutes with the patient and/or on the patient floor today, greater than?50% of which was spent counseling/coordinating care. Patient educated on: therapeutic strategies Informed Consent: understands Reason for contiued inpatient stay Substantial Risk for: harm to self, inability to function and rapid decompensation
[2021-08-18 18:00] VITALS: BP 121/85; PULSE 110; TEMP 36.9; O2SAT 95
[2021-08-19 06:24] LABS: Glucose, Whole Blood 173 mg/dL (60-115)
[2021-08-19 09:00] VITALS: BP 132/77; PULSE 108; TEMP 36.6
[2021-08-19] MEDS: ARIPiprazole 20 MG TABLET PO (09:01)
[2021-08-19] MEDS: lisinopriL 20 MG TABLET PO (09:02)
[2021-08-19] MEDS: Venlafaxine HCl ER 75 MG CAP.ER.24H 225 MG PO (09:02)
[2021-08-19] MEDS: ALPRAZolam 0.5 MG TABLET 2 MG PO ×2 (09:02→14:42)
[2021-08-19] MEDS: glipiZIDE XL 5 MG TAB.ER.24 PO (09:02)
[2021-08-19] MEDS: Amphetamine Mixed Salts 20 MG TABLET 30 MG PO ×4 (09:03→22:31)
[2021-08-19] MEDS: Atorvastatin Calcium 10 MG TABLET PO (09:03)
[2021-08-19] MEDS: metFORMIN HCl 1,000 MG TABLET 1000 MG PO ×2 (09:03→17:29)
[2021-08-19 09:46] LABS: Creatinine Clr Calc Pharmacy 201.1; Estimated Glomerular Filt Rate > 60
--- NOTE | 2021-08-19 13:25 | P.PNPSI_ITS ---
Subjective Subjective Date of Service: 08/19/21 Reason For Visit: Overdose on Rx, bipolar depression Interim History: Ad struggling with unit limits. Cell phone use restricted due to in appropriate use, difficulty with unit parameters. Pt verbalized understanding. Continues to have significant behavioral symptoms which can be self-sabotaging for his achieving longer term stability and meeting goals. Much phone contact with insurance company, [facility], treatment providers. Review of parameters, updates with Ad who verbalized understanding then, when individual meetings ends engages other agencies in conflicts which can increase his expression of distress passively. Notified this evening that pt asked to fax his insurance company a writing entitled A man with no hope A man with no hope as days go bye the hopeless I feel. I really belong so I am not hurting no more and I assure you once I get out of this hospital I will overdose on my meds that I have from home. I have no happiness in my life, just sadness. In my heart I just found out my dad just sold the house so now I have no sup port. The only option I want to do is cut my neck. and thats promise every time. I overdose or cut my neck. I pray that I would . What is the point of caring? What I always think about is ending my life. I am just a waste of person who always thinks of all kinds of ways of . Bottom line, I just want to end my life and promise and assure you thats whats going to happen. I might even go to a hardware store, get some rope and hang myself in a park and thats a fact not a statement. Bottom line and I just want to make it clear my life is over whenever I am discharged from this hospital I don't know when it is going to happen but it is going to happen. Team continues to work with [facility] regarding appropriate resources for pt. On the unit, behavioral and affective modulation activities are encouraged to assist pt in grounding and establishing a solid plan of care. Medication Compliance: Yes Side effects from medications: No Attending Groups: Intermittent Review of Systems Acute medical concerns: No Medical Review of Systems: unchanged Review of Systems Reports behavioral changes Psychiatric: Reports anxiety, Reports behavioral changes, Reports depression, Reports difficulty concentrating, Reports hopelessness, Reports irritability, Reports anhedonia, Reports mood swings and Reports paranoia Mental Status Exam Mental Status Exam Patient Appearance: Appropriate Patient Orientation: Person, Place, Time and Situation Level of Consciousness: Awake and Alert Patient Behavior: Talkative, Hyperactive, Anxious, Distractible and Good Eye Contact Mood Description: Depressed, Anxious, Nervous and Apprehensive Affect Description: Labile and Expansive Patient Cognition Impaired: No Ability to Follow Directions: Good Speech Pattern: Spontaneous Speech Memory Description: Intact Hallucinations: None Delusions: Paranoid Ideation and Grandiose Perceptual Disturbances: Depersonalization and Derealization Thought Process: Distracted Thought Content: positive for [place], positive for Circumstantial, positive for Tangential and positive for Suicidal Ideation (denies) Depressive Symptoms: Increased Anxiety, Diff. Making Decisions and Thoughts of /Suicide (denies) Abnormal Motor Activity Signs and Symptoms: Restlessness Judgement: Fair Diagnostics Vital Signs (24Hr): Vital Signs - 24 hr 08/18/21 18:00 08/19/21 09:00 Temperature 98.4 F 97.8 F Pulse Rate 110 H 108 H Blood Pressure 121/85 132/77 Pulse Oximetry 95 BMI result Body Mass Index 51.5 Labs Results: 08/19/21 08:28 Labs: Laboratory Results - last 48 hr 08/19/21 08/19/21 06:17 08:28 Creatinine 0.76 Estim Creat Clear Calc 201.1 Estimated GFR > 60 POC Glucose 173 H Medications Medications Current Medications Acetaminophen (Acetaminophen 325 Mg Tablet) 650 mg PO Q6H PRN PRN Reason: Headache/Pain Mild Scale (1-3) Al Hydroxide/Mg Hydroxide (Magnesium Hydrox/Alum Hydrox 30 Ml Oral.Susp) 30 ml PO Q6H PRN PRN Reason: Heartburn/Nausea Alprazolam (Alprazolam 0.5 Mg Tablet) 2 mg PO QID PRN PRN Reason: anxiety Last Admin: 08/19/21 09:02 Dose: 2 mg Documented by: Amphetamine/Dextroamphetamine (Amphetamine Mixed Salts 20 Mg Tablet) 30 mg PO QID [facility] Last Admin: 08/19/21 12:07 Dose: 30 mg Documented by: Aripiprazole (Aripiprazole 20 Mg Tablet) 20 mg PO DAILY [facility] Last Admin: 08/19/21 09:01 Dose: 20 mg Documented by: Atorvastatin Calcium (Atorvastatin Calcium 10 Mg Tablet) 10 mg PO DAILY [facility] Last Admin: 08/19/21 09:03 Dose: 10 mg Documented by: Glipizide (Glipizide Xl 5 Mg Tab.Er.24) 5 mg PO DAILY [facility] Last Admin: 08/19/21 09:02 Dose: 5 mg Documented by: Hydroxyzine HCl (Hydroxyzine Hcl 25 Mg Tablet) 25 mg PO Q6H PRN PRN Reason: Anxiety Lisinopril (Lisinopril 20 Mg Tablet) 20 mg PO DAILY [facility]; Protocol Last Admin: 08/19/21 09:02 Dose: 20 mg Documented by: Magnesium Hydroxide (Milk Of Magnesia 30 Ml Oral.Susp) 30 ml PO DAILY PRN PRN Reason: Constipation Metformin HCl (Metformin Hcl 1,000 Mg Tablet) 1,000 mg PO BIDWM [facility] Last Admin: 08/19/21 09:03 Dose: 1,000 mg Documented by: Patient Own Med ( Lamotrigine Er 300mg ) 1 each PO DAILY [facility] Last Admin: 08/19/21 09:04 Dose: 1 each Documented by: Trazodone HCl (Trazodone Hcl 50 Mg Tablet) 50 mg PO BEDTIME PRN PRN Reason: Insomnia Venlafaxine HCl (Venlafaxine Hcl Er 75 Mg Cap.Er.24h) 225 mg PO DAILY [facility] Last Admin: 08/19/21 09:02 Dose: 225 mg Documented by: Ziprasidone (Ziprasidone 20 Mg Capsule) 20 mg PO BID PRN PRN Reason: agitation, violence Allergies Allergies Allergy/AdvReac Type Severity Reaction Status Date / Time chlorpromazine Allergy Mild Hives Verified 08/12/21 20:11 haloperidol [From Haldol] Allergy Mild Hives Verified 08/12/21 20:11 olanzapine [From Zyprexa] Allergy Mild Hives Verified 08/12/21 20:11 risperidone [From Risperdal] Allergy Mild Hives Verified 08/12/21 20:11 Assessment & Plan Assessment & Plan (1) Bipolar II disorder: Status: Acute Code(s): F31.81 - Bipolar II disorder (2) PTSD (post-traumatic stress disorder): Status: Acute Code(s): F43.10 - Post-traumatic stress disorder, unspecified (3) Cannabis use disorder, moderate, dependence: Status: Acute Code(s): F12.20 - Cannabis dependence, uncomplicated (4) Cocaine use disorder, moderate, dependence: Status: Acute Code(s): F14.20 - Cocaine dependence, uncomplicated (5) Borderline personality disorder: Status: Acute Code(s): F60.3 - Borderline personality disorder (6) Hypertension: Status: Acute Code(s): I10 - Essential (primary) hypertension (7) Diabetes mellitus: Status: Acute Code(s): E11.9 - Type 2 diabetes mellitus without complications (8) Hyperlipidemia: Status: Acute Code(s): E78.5 - Hyperlipidemia, unspecified (9) Morbid obesity: Status: Acute Code(s): E66.01 - Morbid (severe) obesity due to excess calories Plan 08/20/21-Continue behavioral plan of care Continue current medication regime-declines changes Continue to work with [facility] on treatment planning Continue to monitor medical parameters although pt declines interventions at this time. I spent minutes with the patient and/or on the patient floor today, gr eater than?50% of which was spent counseling/coordinating care. Patient educated on: therapeutic strategies Informed Consent: understands Reason for contiued inpatient stay Substantial Risk for: harm to self, inability to function, rapid decompensation and med/psych decompensation
[2021-08-19 22:30] VITALS: BP 138/70; PULSE 116; RESP 19; TEMP 36.3; O2SAT 97
[2021-08-20] MEDS: ALPRAZolam 0.5 MG TABLET 2 MG PO ×2 (01:59→11:07)
[2021-08-20 06:00] VITALS: BP 135/88; PULSE 109; RESP 18; O2SAT 94
[2021-08-20 07:05] LABS: Glucose, Whole Blood 252 mg/dL (60-115)
[2021-08-20] MEDS: ARIPiprazole 20 MG TABLET PO (08:29)
[2021-08-20] MEDS: Amphetamine Mixed Salts 20 MG TABLET 30 MG PO ×4 (08:29→22:31)
[2021-08-20] MEDS: lisinopriL 20 MG TABLET PO (08:30)
[2021-08-20] MEDS: Atorvastatin Calcium 10 MG TABLET PO (08:30)
[2021-08-20] MEDS: Venlafaxine HCl ER 75 MG CAP.ER.24H 225 MG PO (08:30)
[2021-08-20] MEDS: metFORMIN HCl 1,000 MG TABLET 1000 MG PO ×2 (08:30→16:26)
[2021-08-20] MEDS: glipiZIDE XL 5 MG TAB.ER.24 PO (08:30)
--- NOTE | 2021-08-20 17:30 | HO.PSYCHPN ---
Subjective Subjective Date of Service: 08/20/21 Reason For Visit: Overdose on Rx, bipolar depression Interim History: Ad notified his insurance company this a.m. that he had a gun in his home in [place] and would use it when discharged. Police reports filed by [facility] and [facility]. Pt calling police several times-we discussed with him that they had asked that she stop calling. Team continues to work on out patient planning with his [facility] team. Met with pt to review, I don't have a gun . I know the mayor and the police. [facility] reports pt has had worsening symptoms since 2017, calls their crisis line with increasing scary, dangerous threats as years have passed. Calls are 2-10 times per day. Pt, in individual meeting is clear, reasonable, non threatening, treatment focused. He then completes a session and goes to the phone to give a different message to his teams. Cell phone is still restricted. Pt was asked to shower and complete laundry this weekend and told we would not be able to fax to his insurance company or make copies to fax to his insurance company. Medication Compliance: Yes Side effects from medications: No Attending Groups: Intermittent Review of Systems Acute medical concerns: No Medical Review of Systems: unchanged Review of Systems Reports behavioral changes Psychiatric: Reports behavioral changes, Reports hopelessness, Reports irritability, Reports anhedonia, Reports mood swings and Reports suicidal ideation Mental Status Exam Mental Status Exam Patient Appearance: Appropriate Patient Orientation: Person, Place, Time and Situation Level of Consciousness: Awake and Alert Patient Behavior: Talkative, Hyperactive, Anxious, Distractible and Good Eye Contact Mood Description: Depressed, Anxious, Nervous and Apprehensive Affect Description: Labile and Expansive Patient Cognition Impaired: No Ability to Follow Directions: Good Speech Pattern: Spontaneous Speech Memory Description: Intact Hallucinations: None Delusions: Paranoid Ideation and Grandiose Perceptual Disturbances: Depersonalization and Derealization Thought Process: Distracted Thought Content: positive for [place], positive for Circumstantial, positive for Tangential and positive for Suicidal Ideation (denies) Depressive Symptoms: Increased Anxiety, Diff. Making Decisions and Thoughts of /Suicide (denies) Abnormal Motor Activity Signs and Symptoms: Restlessness Judgement: Fair Diagnostics Vital Signs (24Hr): Vital Signs - 24 hr 08/19/21 22:30 08/20/21 06:00 Temperature 97.3 F Pulse Rate 116 H 109 H Respiratory Rate 19 18 Blood Pressure 138/70 135/88 Pulse Oximetry 97 94 BMI result Body Mass Index 51.5 Labs Results: 08/19/21 08:28 Labs: Laboratory Results - last 48 hr 08/19/21 08/19/21 08/20/21 06:17 08:28 06:58 Creatinine 0.76 Estim Creat Clear Calc 201.1 Estimated GFR > 60 POC Glucose 173 H 252 H Medications Medications Current Medications Acetaminophen (Acetaminophen 325 Mg Tablet) 650 mg PO Q6H PRN PRN Reason: Headache/Pain Mild Scale (1-3) Al Hydroxide/Mg Hydroxide (Magnesium Hydrox/Alum Hydrox 30 Ml Oral.Susp) 30 ml PO Q6H PRN PRN Reason: Heartburn/Nausea Alprazolam (Alprazolam 0.5 Mg Tablet) 2 mg PO QID PRN PRN Reason: anxiety Last Admin: 08/20/21 11:07 Dose: 2 mg Documented by: Amphetamine/Dextroamphetamine (Amphetamine Mixed Salts 20 Mg Tablet) 30 mg PO QID [facility] Last Admin: 08/20/21 16:26 Dose: 30 mg Documented by: Aripiprazole (Aripiprazole 20 Mg Tablet) 20 mg PO DAILY [facility] Last Admin: 08/20/21 08:29 Dose: 20 mg Documented by: Atorvastatin Calcium (Atorvastatin Calcium 10 Mg Tablet) 10 mg PO DAILY [facility] Last Admin: 08/20/21 08:30 Dose: 10 mg Documented by: Glipizide (Glipizide Xl 5 Mg Tab.Er.24) 5 mg PO DAILY [facility] Last Admin: 08/20/21 08:30 Dose: 5 mg Documented by: Hydroxyzine HCl (Hydroxyzine Hcl 25 Mg Tablet) 25 mg PO Q6H PRN PRN Reason: Anxiety Lisinopril (Lisinopril 20 Mg Tablet) 20 mg PO DAILY [facility]; Protocol Last Admin: 08/20/21 08:30 Dose: 20 mg Documented by: Magnesium Hydroxide (Milk Of Magnesia 30 Ml Oral.Susp) 30 ml PO DAILY PRN PRN Reason: Constipation Metformin HCl (Metformin Hcl 1,000 Mg Tablet) 1,000 mg PO BIDWM [facility] Last Admin: 08/20/21 16:26 Dose: 1,000 mg Documented by: Patient Own Med ( Lamotrigine Er 300mg ) 1 each PO DAILY [facility] Last Admin: 08/20/21 08:29 Dose: 1 each Documented by: Trazodone HCl (Trazodone Hcl 50 Mg Tablet) 50 mg PO BEDTIME PRN PRN Reason: Insomnia Venlafaxine HCl (Venlafaxine Hcl Er 75 Mg Cap.Er.24h) 225 mg PO DAILY [facility] Last Admin: 08/20/21 08:30 Dose: 225 mg Documented by: Ziprasidone (Ziprasidone 20 Mg Capsule) 20 mg PO BID PRN PRN Reason: agitation, violence Allergies Allergies Allergy/AdvReac Type Severity Reaction Status Date / Time chlorpromazine Allergy Mild Hives Verified 08/12/21 20:11 haloperidol [From Haldol] Allergy Mild Hives Verified 08/12/21 20:11 olanzapine [From Zyprexa] Allergy Mild Hives Verified 08/12/21 20:11 risperidone [From Risperdal] Allergy Mild Hives Verified 08/12/21 20:11 Assessment & Plan Assessment & Plan (1) Bipolar II disorder: Status: Acute Code(s): F31.81 - Bipolar II disorder (2) PTSD (post-traumatic stress disorder): Status: Acute Code(s): F43.10 - Post-traumatic stress disorder, unspecified (3) Cannabis use disorder, moderate, dependence: Status: Acute Code(s): F12.20 - Cannabis dependence, uncomplicated (4) Cocaine use disorder, moderate, dependence: Status: Acute Code(s): F14.20 - Cocaine dependence, uncomplicated (5) Borderline personality disorder: Status: Acute Code(s): F60.3 - Borderline personality disorder (6) Hypertension: Status: Acute Code(s): I10 - Essential (primary) hypertension (7) Diabetes mellitus: Status: Acute Code(s): E11.9 - Type 2 diabetes mellitus without complications (8) Hyperlipidemia: Status: Acute Code(s): E78.5 - Hyperlipidemia, unspecified (9) Morbid obesity: Status: Acute Code(s): E66.01 - Morbid (severe) obesity due to excess calories Plan 08/20/21-Continue behavioral plan of care Continue current medication regime-declines changes Continue to work with [facility] on treatment planning Continue to monitor medical parameters although pt declines interventions at this time. 08/21/21- Continue plan of care I spent minutes with the patient and/or on the patient floor today, greater than?50% of which was spent counseling/coordinating care. Patient educated on: therapeutic strategies Informed Consent: understands Reason for contiued inpatient stay Substantial Risk for: harm to self, harm to others, inability to function, rapid decompensation and med/psych decompensation
[2021-08-20 18:00] VITALS: BP 134/82; PULSE 114; RESP 16; TEMP 36; O2SAT 98
[2021-08-21 06:15] VITALS: BP 125/73; PULSE 103; RESP 20; TEMP 36.6; O2SAT 98
[2021-08-21 06:39] LABS: Glucose, Whole Blood 176 mg/dL (60-115)
[2021-08-21] MEDS: ARIPiprazole 20 MG TABLET PO (09:06)
[2021-08-21] MEDS: glipiZIDE XL 5 MG TAB.ER.24 PO (09:06)
[2021-08-21] MEDS: Atorvastatin Calcium 10 MG TABLET PO (09:07)
[2021-08-21] MEDS: Amphetamine Mixed Salts 20 MG TABLET 30 MG PO ×4 (09:07→20:14)
[2021-08-21] MEDS: metFORMIN HCl 1,000 MG TABLET 1000 MG PO ×2 (09:07→16:24)
[2021-08-21] MEDS: lisinopriL 20 MG TABLET PO (09:07)
[2021-08-21] MEDS: Venlafaxine HCl ER 75 MG CAP.ER.24H 225 MG PO (09:07)
[2021-08-21 09:11] VITALS: BP 156/107; PULSE 113; RESP 18; O2SAT 94
--- NOTE | 2021-08-21 09:41 | HO.PSYCHPN ---
Subjective Subjective Date of Service: 08/21/21 Reason For Visit: Overdose on Rx, bipolar depression Interim History: Patient says that he is doing good. He denies any SI. He says he is eating and sleeping well. Patient said that he is over the upsetting phone call he got yesterday understand that his ex is simply trying to trigger him. 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 He is hoping to get [facility] services over there. He denies any complaints or requests. Mental Status Exam Mental Status Exam Narrative: Patient Appearance:?Appropriate Patient Orientation:?Person, Place, Time and Situation Level of Consciousness:?Awake and Alert Patient Behavior:?Talkative, Hyperactive, Anxious, Distractible and Good Eye Contact Mood Description:? good Affect Description: congruent Patient Cognition Impaired:?No Ability to Follow Directions:?Good Speech Pattern:?Spontaneous Speech Memory Description:?Intact Hallucinations:?None Delusions:?none expressed Perceptual Disturbances:?Depersonalization and Derealization Thought Process:?goal oriented; circumstantial Thought Content:?denies SI/HI; possible discharge next week Abnormal Motor Activity Signs and Symptoms:?none Judgement:?Fair Diagnostics Vital Signs (24Hr): Vital Signs - 24 hr 08/20/21 18:00 08/21/21 06:15 08/21/21 09:11 Temperature 96.8 F 97.9 F Pulse Rate 114 H 103 H 113 H Respiratory Rate 16 20 18 Blood Pressure 134/82 125/73 156/107 H Pulse Oximetry 98 98 94 BMI result Body Mass Index 51.5 Labs Results: 08/19/21 08:28 Labs: Laboratory Results - last 48 hr 08/19/21 08/20/21 08/21/21 08:28 06:58 06:14 Creatinine 0.76 Estim Creat Clear Calc 201.1 Estimated GFR > 60 POC Glucose 252 H 176 H Medications Medications Current Medications Acetaminophen (Acetaminophen 325 Mg Tablet) 650 mg PO Q6H PRN PRN Reason: Headache/Pain Mild Scale (1-3) Al Hydroxide/Mg Hydroxide (Magnesium Hydrox/Alum Hydrox 30 Ml Oral.Susp) 30 ml PO Q6H PRN PRN Reason: Heartburn/Nausea Alprazolam (Alprazolam 0.5 Mg Tablet) 2 mg PO QID PRN PRN Reason: anxiety Last Admin: 08/20/21 11:07 Dose: 2 mg Documented by: Amphetamine/Dextroamphetamine (Amphetamine Mixed Salts 20 Mg Tablet) 30 mg PO QID [facility] Last Admin: 08/21/21 09:07 Dose: 30 mg Documented by: Aripiprazole (Aripiprazole 20 Mg Tablet) 20 mg PO DAILY [facility] Last Admin: 08/21/21 09:06 Dose: 20 mg Documented by: Atorvastatin Calcium (Atorvastatin Calcium 10 Mg Tablet) 10 mg PO DAILY [facility] Last Admin: 08/21/21 09:07 Dose: 10 mg Documented by: Glipizide (Glipizide Xl 5 Mg Tab.Er.24) 5 mg PO DAILY [facility] Last Admin: 08/21/21 09:06 Dose: 5 mg Documented by: Hydroxyzine HCl (Hydroxyzine Hcl 25 Mg Tablet) 25 mg PO Q6H PRN PRN Reason: Anxiety Lisinopril (Lisinopril 20 Mg Tablet) 20 mg PO DAILY [facility]; Protocol Last Admin: 08/21/21 09:07 Dose: 20 mg Documented by: Magnesium Hydroxide (Milk Of Magnesia 30 Ml Oral.Susp) 30 ml PO DAILY PRN PRN Reason: Constipation Metformin HCl (Metformin Hcl 1,000 Mg Tablet) 1,000 mg PO BIDWM [facility] Last Admin: 08/21/21 09:07 Dose: 1,000 mg Documented by: Patient Own Med ( Lamotrigine Er 300mg ) 1 each PO DAILY [facility] Last Admin: 08/21/21 09:06 Dose: 1 each Documented by: Trazodone HCl (Trazodone Hcl 50 Mg Tablet) 50 mg PO BEDTIME PRN PRN Reason: Insomnia Venlafaxine HCl (Venlafaxine Hcl Er 75 Mg Cap.Er.24h) 225 mg PO DAILY [facility] Last Admin: 08/21/21 09:07 Dose: 225 mg Documented by: Ziprasidone (Ziprasidone 20 Mg Capsule) 20 mg PO BID PRN PRN Reason: agitation, violence Allergies Allergies Allergy/AdvReac Type Severity Reaction Status Date / Time chlorpromazine Allergy Mild Hives Verified 08/12/21 20:11 haloperidol [From Haldol] Allergy Mild Hives Verified 08/12/21 20:11 olanzapine [From Zyprexa] Allergy Mild Hives Verified 08/12/21 20:11 risperidone [From Risperdal] Allergy Mild Hives Verified 08/12/21 20:11 Assessment & Plan Assessment & Plan (1) Bipolar II disorder: Status: Acute Code(s): F31.81 - Bipolar II disorder (2) PTSD (post-traumatic stress disorder): Status: Acute Code(s): F43.10 - Post-traumatic stress disorder, unspecified (3) Cannabis use disorder, moderate, dependence: Status: Acute Code(s): F12.20 - Cannabis dependence, uncomplicated (4) Cocaine use disorder, moderate, dependence: Status: Acute Code(s): F14.20 - Cocaine dependence, uncomplicated (5) Borderline personality disorder: Status: Acute Code(s): F60.3 - Borderline personality disorder (6) Hypertension: Status: Acute Code(s): I10 - Essential (primary) hypertension (7) Diabetes mellitus: Status: Acute Code(s): E11.9 - Type 2 diabetes mellitus without complications (8) Hyperlipidemia: Status: Acute Code(s): E78.5 - Hyperlipidemia, unspecified (9) Morbid obesity: Status: Acute Code(s): E66.01 - Morbid (severe) obesity due to excess calories Plan 08/20/21-Continue behavioral plan of care Continue current medication regime-declines changes Continue to work with [facility] on treatment planning Continue to monitor medical parameters although pt declines interventions at this time. 08/21/21- Continue plan of care I spent minutes with the patient and/or on the patient floor today, greater than?50% of which was spent counseling/coordinating care. Patient educated on: diagnosis Informed Consent: understands Reason for contiued inpatient stay Substantial Risk for: med/psych decompensation
[2021-08-21] MEDS: ALPRAZolam 0.5 MG TABLET 2 MG PO ×2 (11:16→16:11)
[2021-08-21 20:15] VITALS: BP 130/78; PULSE 126; TEMP 36.4; O2SAT 94
[2021-08-22] MEDS: ALPRAZolam 0.5 MG TABLET 2 MG PO ×2 (01:17→11:37)
[2021-08-22 04:31] LABS: Glucose, Whole Blood 227 mg/dL (60-115)
[2021-08-22] MEDS: Venlafaxine HCl ER 75 MG CAP.ER.24H 225 MG PO (08:10)
[2021-08-22] MEDS: glipiZIDE XL 5 MG TAB.ER.24 PO (08:10)
[2021-08-22] MEDS: metFORMIN HCl 1,000 MG TABLET 1000 MG PO ×2 (08:10→16:08)
[2021-08-22] MEDS: lisinopriL 20 MG TABLET PO (08:10)
[2021-08-22] MEDS: Amphetamine Mixed Salts 20 MG TABLET 30 MG PO ×4 (08:10→21:03)
[2021-08-22] MEDS: ARIPiprazole 20 MG TABLET PO (08:10)
[2021-08-22] MEDS: Atorvastatin Calcium 10 MG TABLET PO (08:10)
[2021-08-22 08:13] VITALS: BP 130/90; PULSE 118; RESP 18; TEMP 36.2; O2SAT 93
--- NOTE | 2021-08-22 13:37 | P.PNPSI_ITS ---
Subjective Subjective Date of Service: 08/22/21 Reason For Visit: Overdose on Rx, bipolar depression Interim History: Upsetting phone call with his brother today. Patient coping with it fine. Mental Status Exam Mental Status Exam Narrative: Patient Appearance:?Appropriate Patient Orientation:?Person, Place, Time and Situation Level of Consciousness:?Awake and Alert Patient Behavior:?Talkative, Hyperactive, Anxious, Distractible and Good Eye Contact Mood Description:?euthymic Affect Description: congruent Patient Cognition Impaired:?No Ability to Follow Directions:?Good Speech Pattern:?Spontaneous Speech Memory Description:?Intact Hallucinations:?None Delusions:?none expressed Perceptual Disturbances:?Depersonalization and Derealization Thought Process:?goal oriented; circumstantial Thought Content:?denies SI/HI; possible discharge next week Abnormal Motor Activity Signs and Symptoms:?none Judgement:?Fair Diagnostics Vital Signs (24Hr): Vital Signs - 24 hr 08/21/21 20:15 08/22/21 08:13 Temperature 97.6 F 97.2 F Pulse Rate 126 H 118 H Respiratory Rate 18 Blood Pressure 130/78 130/90 H Pulse Oximetry 94 93 BMI result Body Mass Index 51.5 Labs Results: 08/19/21 08:28 Labs: Laboratory Results - last 48 hr 08/21/21 08/22/21 06:14 04:27 POC Glucose 176 H 227 H Medications Medications Current Medications Acetaminophen (Acetaminophen 325 Mg Tablet) 650 mg PO Q6H PRN PRN Reason: Headache/Pain Mild Scale (1-3) Al Hydroxide/Mg Hydroxide (Magnesium Hydrox/Alum Hydrox 30 Ml Oral.Susp) 30 ml PO Q6H PRN PRN Reason: Heartburn/Nausea Alprazolam (Alprazolam 0.5 Mg Tablet) 2 mg PO QID PRN PRN Reason: anxiety Last Admin: 08/22/21 11:37 Dose: 2 mg Documented by: Amphetamine/Dextroamphetamine (Amphetamine Mixed Salts 20 Mg Tablet) 30 mg PO QID [facility] Last Admin: 08/22/21 12:11 Dose: 30 mg Documented by: Aripiprazole (Aripiprazole 20 Mg Tablet) 20 mg PO DAILY [facility] Last Admin: 08/22/21 08:10 Dose: 20 mg Documented by: Atorvastatin Calcium (Atorvastatin Calcium 10 Mg Tablet) 10 mg PO DAILY [facility] Last Admin: 08/22/21 08:10 Dose: 10 mg Documented by: Glipizide (Glipizide Xl 5 Mg Tab.Er.24) 5 mg PO DAILY [facility] Last Admin: 08/22/21 08:10 Dose: 5 mg Documented by: Hydroxyzine HCl (Hydroxyzine Hcl 25 Mg Tablet) 25 mg PO Q6H PRN PRN Reason: Anxiety Lisinopril (Lisinopril 20 Mg Tablet) 20 mg PO DAILY [facility]; Protocol Last Admin: 08/22/21 08:10 Dose: 20 mg Documented by: Magnesium Hydroxide (Milk Of Magnesia 30 Ml Oral.Susp) 30 ml PO DAILY PRN PRN Reason: Constipation Metformin HCl (Metformin Hcl 1,000 Mg Tablet) 1,000 mg PO BIDWM [facility] Last Admin: 08/22/21 08:10 Dose: 1,000 mg Documented by: Patient Own Med ( Lamotrigine Er 300mg ) 1 each PO DAILY [facility] Last Admin: 08/22/21 08:10 Dose: 1 each Documented by: Trazodone HCl (Trazodone Hcl 50 Mg Tablet) 50 mg PO BEDTIME PRN PRN Reason: Insomnia Venlafaxine HCl (Venlafaxine Hcl Er 75 Mg Cap.Er.24h) 225 mg PO DAILY [facility] Last Admin: 08/22/21 08:10 Dose: 225 mg Documented by: Ziprasidone (Ziprasidone 20 Mg Capsule) 20 mg PO BID PRN PRN Reason: agitation, violence Allergies Allergies Allergy/AdvReac Type Severity Reaction Status Date / Time chlorpromazine Allergy Mild Hives Verified 08/12/21 20:11 haloperidol [From Haldol] Allergy Mild Hives Verified 08/12/21 20:11 olanzapine [From Zyprexa] Allergy Mild Hives Verified 08/12/21 20:11 risperidone [From Risperdal] Allergy Mild Hives Verified 08/12/21 20:11 Assessment & Plan Assessment & Plan (1) Bipolar II disorder: Status: Acute Code(s): F31.81 - Bipolar II disorder (2) PTSD (post-traumatic stress disorder): Status: Acute Code(s): F43.10 - Post-traumatic stress disorder, unspecified (3) Cannabis use disorder, moderate, dependence: Status: Acute Code(s): F12.20 - Cannabis dependence, uncomplicated (4) Cocaine use disorder, moderate, dependence: Status: Acute Code(s): F14.20 - Cocaine dependence, uncomplicated (5) Borderline personality disorder: Status: Acute Code(s): F60.3 - Borderline personality disorder (6) Hypertension: Status: Acute Code(s): I10 - Essential (primary) hypertension (7) Diabetes mellitus: Status: Acute Code(s): E11.9 - Type 2 diabetes mellitus without complications (8) Hyperlipidemia: Status: Acute Code(s): E78.5 - Hyperlipidemia, unspecified (9) Morbid obesity: Status: Acute Code(s): E66.01 - Morbid (severe) obesity due to excess calories Plan 08/20/21-Continue behavioral plan of care Continue current medication regime-declines changes Continue to work with [facility] on treatment planning Continue to monitor medical parameters although pt declines interventions at this time. 08/21/21- Continue plan of care 08/22/21- Continue plan of care I spent minutes with the patient and/or on the patient floor today, greater than?50% of which was spent counseling/coordinating care. Reason for contiued inpatient stay Substantial Risk for: rapid decompensation
[2021-08-22 18:00] VITALS: BP 138/92; PULSE 117; RESP 16; TEMP 36.3; O2SAT 96
[2021-08-23 06:00] VITALS: BP 134/94; PULSE 109; RESP 14; TEMP 36.6; O2SAT 98
[2021-08-23 06:40] LABS: Glucose, Whole Blood 208 mg/dL (60-115)
[2021-08-23] MEDS: Atorvastatin Calcium 10 MG TABLET PO (08:31)
[2021-08-23] MEDS: Venlafaxine HCl ER 75 MG CAP.ER.24H 225 MG PO (08:31)
[2021-08-23] MEDS: Amphetamine Mixed Salts 20 MG TABLET 30 MG PO ×4 (08:31→22:26)
[2021-08-23] MEDS: lisinopriL 20 MG TABLET PO (08:31)
[2021-08-23] MEDS: ARIPiprazole 20 MG TABLET PO (08:31)
[2021-08-23] MEDS: metFORMIN HCl 1,000 MG TABLET 1000 MG PO ×2 (08:31→17:10)
[2021-08-23] MEDS: glipiZIDE XL 5 MG TAB.ER.24 PO (08:31)
[2021-08-23] MEDS: ALPRAZolam 0.5 MG TABLET 2 MG PO ×3 (09:26→19:41)
--- NOTE | 2021-08-23 16:39 | P.PNPSI_ITS ---
Subjective Subjective Date of Service: 08/23/21 Reason For Visit: Overdose on Rx, bipolar depression Subjective Notes: Conditional Voluntary Healthcare Proxy: No Guardianship: No Medical Problems Affecting Mental Status: No Interim History: I will not need prescriptions from you. My doctor sent them in today. Effexor XR 225 mg approved by [facility]. Met with pt and Charly SEE today-pt reports I am anxious about what is going on. When asked what pt needs assist with from his team he identifies 1. Help in moving to [place] 2. Housing ([facility]) 3. ACCS 4. PACR 5. To keep providers of his choice Tearful when discussing his current struggle with self-worth, self-esteem. Denies SI at this time. Medication Compliance: Yes Side effects from medications: No Attending Groups: Intermittent Review of Systems Acute medical concerns: No Medical Review of Systems: unchanged Review of Systems Psychiatric: Reports no additional psychiatric complaints and Reports suicidal ideation (denies) Mental Status Exam Mental Status Exam Patient Appearance: Appropriate Patient Orientation: Person, Place, Time and Situation Level of Consciousness: Alert Patient Behavior: Talkative and Good Eye Contact Mood Description: Apprehensive Affect Description: Apprehensive Patient Cognition Impaired: No Ability to Follow Directions: Good Speech Pattern: Spontaneous Speech Memory Description: Intact Hallucinations: None Delusions: Not Present Perceptual Disturbances: Depersonalization Thought Process: Distracted and Rumination Thought Content: positive for [place], positive for Circumstantial and positive for Suicidal Ideation (denies) Depressive Symptoms: Thoughts of /Suicide (denies) Judgement: Fair Diagnostics Vital Signs (24Hr): Vital Signs - 24 hr 08/22/21 18:00 08/23/21 06:00 Temperature 97.4 F 98 F Pulse Rate 117 H 109 H Respiratory Rate 16 14 Blood Pressure 138/92 H 134/94 H Pulse Oximetry 96 98 BMI result Body Mass Index 51.5 Labs Results: 08/19/21 08:28 Labs: Laboratory Results - last 48 hr 08/22/21 08/23/21 04:27 06:17 POC Glucose 227 H 208 H Medications Medications Current Medications Acetaminophen (Acetaminophen 325 Mg Tablet) 650 mg PO Q6H PRN PRN Reason: Headache/Pain Mild Scale (1-3) Al Hydroxide/Mg Hydroxide (Magnesium Hydrox/Alum Hydrox 30 Ml Oral.Susp) 30 ml PO Q6H PRN PRN Reason: Heartburn/Nausea Alprazolam (Alprazolam 0.5 Mg Tablet) 2 mg PO QID PRN PRN Reason: anxiety Last Admin: 08/23/21 13:12 Dose: 2 mg Documented by: Amphetamine/Dextroamphetamine (Amphetamine Mixed Salts 20 Mg Tablet) 30 mg PO QID REPLACED BY [facility] Last Admin: 08/23/21 16:01 Dose: 30 mg Documented by: Aripiprazole (Aripiprazole 20 Mg Tablet) 20 mg PO DAILY [facility]PL[facility] BY [facility] Last Admin: 08/23/21 08:31 Dose: 20 mg Documented by: Atorvastatin Calcium (Atorvastatin Calcium 10 Mg Tablet) 10 mg PO DAILY [facility] BY [facility] Last Admin: 08/23/21 08:31 Dose: 10 mg Documented by: Glipizide (Glipizide Xl 5 Mg Tab.Er.24) 5 mg PO DAILY [facility] BY [facility] Last Admin: 08/23/21 08:31 Dose: 5 mg Documented by: Hydroxyzine HCl (Hydroxyzine Hcl 25 Mg Tablet) 25 mg PO Q6H PRN PRN Reason: Anxiety Lisinopril (Lisinopril 20 Mg Tablet) 20 mg PO DAILY [facility] BY [facility]; Protocol Last Admin: 08/23/21 08:31 Dose: 20 mg Documented by: Magnesium Hydroxide (Milk Of Magnesia 30 Ml Oral.Susp) 30 ml PO DAILY PRN PRN Reason: Constipation Metformin HCl (Metformin Hcl 1,000 Mg Tablet) 1,000 mg PO BIDWM REPLACED BY [facility] Last Admin: 08/23/21 08:31 Dose: 1,000 mg Documented by: Patient Own Med ( Lamotrigine Er 300mg ) 1 each PO DAILY [facility] Last Admin: 08/23/21 09:28 Dose: 1 each Documented by: Trazodone HCl (Trazodone Hcl 50 Mg Tablet) 50 mg PO BEDTIME PRN PRN Reason: Insomnia Venlafaxine HCl (Venlafaxine Hcl Er 75 Mg Cap.Er.24h) 225 mg PO DAILY [facility] Last Admin: 08/23/21 08:31 Dose: 225 mg Documented by: Ziprasidone (Ziprasidone 20 Mg Capsule) 20 mg PO BID PRN PRN Reason: agitation, violence Allergies Allergies Allergy/AdvReac Type Severity Reaction Status Date / Time chlorpromazine Allergy Mild Hives Verified 08/12/21 20:11 haloperidol [From Haldol] Allergy Mild Hives Verified 08/12/21 20:11 olanzapine [From Zyprexa] Allergy Mild Hives Verified 08/12/21 20:11 risperidone [From Risperdal] Allergy Mild Hives Verified 08/12/21 20:11 Assessment & Plan Assessment & Plan (1) Bipolar II disorder: Status: Acute Code(s): F31.81 - Bipolar II disorder (2) PTSD (post-traumatic stress disorder): Status: Acute Code(s): F43.10 - Post-traumatic stress disorder, unspecified (3) Cannabis use disorder, moderate, dependence: Status: Acute Code(s): F12.20 - Cannabis dependence, uncomplicated (4) Cocaine use disorder, moderate, dependence: Status: Acute Code(s): F14.20 - Cocaine dependence, uncomplicated (5) Borderline personality disorder: Status: Acute Code(s): F60.3 - Borderline personality disorder (6) Hypertension: Status: Acute Code(s): I10 - Essential (primary) hypertension (7) Diabetes mellitus: Status: Acute Code(s): E11.9 - Type 2 diabetes mellitus without complications (8) Hyperlipidemia: Status: Acute Code(s): E78.5 - Hyperlipidemia, unspecified (9) Morbid obesity: Status: Acute Code(s): E66.01 - Morbid (severe) obesity due to excess calories Plan 08/20/21-Continue behavioral plan of care Continue current medication regime-declines changes Continue to work with [facility] on treatment planning Continue to monitor medical parameters although pt declines interventions at this time. 08/21/21- Continue plan of care 08/22/21- Continue plan of care 08/23/21- Continue plan of care I spent minutes with the patient and/or on the patient floor today, greater than?50% of which was spent counseling/coordinating care. Patient educated on: therapeutic strategies Informed Consent: understands Reason for contiued inpatient stay Substantial Risk for: harm to self, inability to function and rapid decompensation
[2021-08-23 16:50] VITALS: BP 131/80; PULSE 110; TEMP 36.6
[2021-08-24 06:00] VITALS: BP 139/84; PULSE 118; RESP 16; TEMP 36.9; O2SAT 94
[2021-08-24 06:26] LABS: Glucose, Whole Blood 190 mg/dL (60-115)
[2021-08-24] MEDS: ARIPiprazole 20 MG TABLET PO (09:07)
[2021-08-24] MEDS: Amphetamine Mixed Salts 20 MG TABLET 30 MG PO ×4 (09:07→20:43)
[2021-08-24] MEDS: lisinopriL 20 MG TABLET PO (09:07)
[2021-08-24] MEDS: Atorvastatin Calcium 10 MG TABLET PO (09:07)
[2021-08-24] MEDS: glipiZIDE XL 5 MG TAB.ER.24 PO (09:07)
[2021-08-24] MEDS: metFORMIN HCl 1,000 MG TABLET 1000 MG PO ×2 (09:07→16:30)
[2021-08-24] MEDS: Venlafaxine HCl ER 75 MG CAP.ER.24H 225 MG PO (09:07)
[2021-08-24] MEDS: ALPRAZolam 0.5 MG TABLET 2 MG PO ×2 (09:41→15:38)
[2021-08-24 11:54] LABS: Creatinine Clr Calc Pharmacy 152.8; Estimated Glomerular Filt Rate > 60
--- NOTE | 2021-08-24 14:50 | P.PNPSI_ITS ---
Subjective Subjective Date of Service: 08/24/21 Reason For Visit: Overdose on Rx, bipolar depression Subjective Notes: Conditional Voluntary Healthcare Proxy: No Guardianship: No Medical Problems Affecting Mental Status: No Interim History: Pt reports sleeping well, no issues with medications. Met with pt and Charly SEE to prepare for team meeting with [facility]. Pt able to identify his g oals-move to [place], Re-establish ACCS services, continue with providers of his choice, prefers senior care placement, or single occupancy with first months rental assist connect with [facility] Message received from Kenyetta Valadez MD [phone] of [facility] to review care. Zoom meeting with [facility] team and [facility]. Currently respite beds are difficult to obtain in [facility] as well as access to funds to assist with rental. [facility] has no immediate placement options. They believe referral to a penitentiary with ACCS support services will be the plan. Pt has to show some good mela in accepting services including not leaving verbally abusive voice mails for his team and some sort of improvement in overall attitude toward services. [facility] asks if [facility] Respite/CSS is an options. They anticipate penitentiary need for ~30 days with [facility] reconnection. Pt reports he believes his relationship with [facility] is intact, however, he reports he believes he owes apologies to [place]. He does not recall meeting Dr. San. He dr afted a letter of apology for the meeting. Medication Compliance: Yes Side effects from medications: No Attending Groups: Yes Review of Systems Acute medical concerns: No Medical Review of Systems: unchanged Review of Systems Reports behavioral changes Psychiatric: Reports anxiety, Reports behavioral changes, Reports hopelessness, Reports irritability, Reports anhedonia, Reports mood swings, Reports paranoia and Reports suicidal ideation Mental Status Exam Mental Status Exam Patient Appearance: Appropriate Patient Orientation: Person, Place, Time and Situation Level of Consciousness: Alert Patient Behavior: Talkative and Good Eye Contact Mood Description: Apprehensive Affect Description: Apprehensive Patient Cognition Impaired: No Ability to Follow Directions: Good Speech Pattern: Spontaneous Speech Memory Description: Intact Hallucinations: None Delusions: Not Present Perceptual Disturbances: Depersonalization Thought Process: Distracted and Rumination Thought Content: positive for [place], positive for Circumstantial and positive for Suicidal Ideation (intermittent) Depressive Symptoms: Thoughts of /Suicide (intermittent) Judgement: Fair Diagnostics Vital Signs (24Hr): Vital Signs - 24 hr 08/23/21 16:50 08/24/21 06:00 Temperature 97.8 F 98.4 F Pulse Rate 110 H 118 H Respiratory Rate 16 Blood Pressure 131/80 139/84 Pulse Oximetry 94 BMI result Body Mass Index 51.5 Labs Results: 08/24/21 11:24 Labs: Laboratory Results - last 48 hr 08/23/21 08/24/21 08/24/21 06:17 06:16 11:24 Creatinine 1.00 Estim Creat Clear Calc 152.8 Estimated GFR > 60 POC Glucose 208 H 190 H Medications Medications Current Medications Acetaminophen (Acetaminophen 325 Mg Tablet) 650 mg PO Q6H PRN PRN Reason: Headache/Pain Mild Scale (1-3) Al Hydroxide/Mg Hydroxide (Magnesium Hydrox/Alum Hydrox 30 Ml Oral.Susp) 30 ml PO Q6H PRN PRN Reason: Heartburn/Nausea Alprazolam (Alprazolam 0.5 Mg Tablet) 2 mg PO QID PRN PRN Reason: anxiety Last Admin: 08/24/21 09:41 Dose: 2 mg Documented by: Amphetamine/Dextroamphetamine (Amphetamine Mixed Salts 20 Mg Tablet) 30 mg PO QID [facility] Last Admin: 08/24/21 12:59 Dose: 30 mg Documented by: Aripiprazole (Aripiprazole 20 Mg Tablet) 20 mg PO DAILY [facility] Last Admin: 08/24/21 09:07 Dose: 20 mg Documented by: Atorvastatin Calcium (Atorvastatin Calcium 10 Mg Tablet) 10 mg PO DAILY [facility] Last Admin: 08/24/21 09:07 Dose: 10 mg Documented by: Glipizide (Glipizide Xl 5 Mg Tab.Er.24) 5 mg PO DAILY [facility] Last Admin: 08/24/21 09:07 Dose: 5 mg Documented by: Hydroxyzine HCl (Hydroxyzine Hcl 25 Mg Tablet) 25 mg PO Q6H PRN PRN Reason: Anxiety Lisinopril (Lisinopril 20 Mg Tablet) 20 mg PO DAILY [facility]; Protocol Last Admin: 08/24/21 09:07 Dose: 20 mg Documented by: Magnesium Hydroxide (Milk Of Magnesia 30 Ml Oral.Susp) 30 ml PO DAILY PRN PRN Reason: Constipation Metformin HCl (Metformin Hcl 1,000 Mg Tablet) 1,000 mg PO BIDWM [facility] Last Admin: 08/24/21 09:07 Dose: 1,000 mg Documented by: Patient Own Med ( Lamotrigine Er 300mg ) 1 each PO DAILY [facility] Last Admin: 08/24/21 09:07 Dose: 1 each Documented by: Trazodone HCl (Trazodone Hcl 50 Mg Tablet) 50 mg PO BEDTIME PRN PRN Reason: Insomnia Venlafaxine HCl (Venlafaxine Hcl Er 75 Mg Cap.Er.24h) 225 mg PO DAILY [facility] Last Admin: 08/24/21 09:07 Dose: 225 mg Documented by: Ziprasidone (Ziprasidone 20 Mg Capsule) 20 mg PO BID PRN PRN Reason: agitation, violence Allergies Allergies Allergy/AdvReac Type Severity Reaction Status Date / Time chlorpromazine Allergy Mild Hives Verified 08/12/21 20:11 haloperidol [From Haldol] Allergy Mild Hives Verified 08/12/21 20:11 olanzapine [From Zyprexa] Allergy Mild Hives Verified 08/12/21 20:11 risperidone [From Risperdal] Allergy Mild Hives Verified 08/12/21 20:11 Assessment & Plan Assessment & Plan (1) Bipolar II disorder: Status: Acute Code(s): F31.81 - Bipolar II disorder (2) PTSD (post-traumatic stress disorder): Status: Acute Code(s): F43.10 - Post-traumatic stress disorder, unspecified (3) Cannabis use disorder, moderate, dependence: Status: Acute Code(s): F12.20 - Cannabis dependence, uncomplicated (4) Cocaine use disorder, moderate, dependence: Status: Acute Code(s): F14.20 - Cocaine dependence, uncomplicated (5) Borderline personality disorder: Status: Acute Code(s): F60.3 - Borderline personality disorder (6) Hypertension: Status: Acute Code(s): I10 - Essential (primary) hypertension (7) Diabetes mellitus: Status: Acute Code(s): E11.9 - Type 2 diabetes mellitus without complications (8) Hyperlipidemia: Status: Acute Code(s): E78.5 - Hyperlipidemia, unspecified (9) Morbid obesity: Status: Acute Code(s): E66.01 - Morbid (severe) obesity due to excess calories Plan 08/20/21-Continue behavioral plan of care Continue current medication regime-declines changes Continue to work with [facility] on treatment planning Continue to monitor medical parameters although pt declines interventions at this time. 08/21/21- Continue plan of care 08/22/21- Continue plan of care 08/23/21- Continue plan of care 08/24/21- Continue plan of care. [facility] will be in contact regarding resources to assist pt in discharge. I spent minutes with the patient and/or on the patient floor today, greater than?50% of which was spent counseling/coordinating care. Patient educated on: medication risk/benefits and therapeutic strategies Informed Consent: understands Reason for contiued inpatient stay Substantial Risk for: harm to self, harm to others, inability to function and rapid decompensation
[2021-08-24 16:16] VITALS: BP 138/80; PULSE 117
[2021-08-25 06:00] VITALS: BP 167/82; PULSE 106; RESP 18; TEMP 36.5; O2SAT 92
[2021-08-25 06:22] LABS: Glucose, Whole Blood 173 mg/dL (60-115)
[2021-08-25] MEDS: ARIPiprazole 20 MG TABLET PO (08:39)
[2021-08-25] MEDS: Amphetamine Mixed Salts 20 MG TABLET 30 MG PO ×4 (08:39→20:06)
[2021-08-25] MEDS: Venlafaxine HCl ER 75 MG CAP.ER.24H 225 MG PO (08:39)
[2021-08-25] MEDS: glipiZIDE XL 5 MG TAB.ER.24 PO (08:39)
[2021-08-25] MEDS: metFORMIN HCl 1,000 MG TABLET 1000 MG PO ×2 (08:39→16:46)
[2021-08-25] MEDS: Atorvastatin Calcium 10 MG TABLET PO (08:39)
[2021-08-25] MEDS: lisinopriL 20 MG TABLET PO (08:39)
[2021-08-25] MEDS: ALPRAZolam 0.5 MG TABLET 2 MG PO ×2 (10:38→18:04)
--- NOTE | 2021-08-25 17:04 | P.PNPSI_ITS ---
Subjective Subjective Date of Service: 08/25/21 Reason For Visit: Overdose on Rx, bipolar depression Subjective Notes: Conditional Voluntary Healthcare Proxy: No Guardianship: No Medical Problems Affecting Mental Status: No Interim History: Met with Nabor GONZALES. Review of [facility] meeting 08/24/21. Pt anxious regarding options. Able to receive feedback about what [facility] will need from him in terms of stopping verbal abuse to their team, being open to suggestions and able to work with team without constant conflict. Call to Kenyetta Valadez MD of [facility] [phone] Cruz to update her on pt's care and discuss discharge planning. [facility] respite will not be an option as pt's admitted to the respite are not coming from inpatient care. Pt, later in the day, [facility] as [facility]. Nieto will retire soon. Pt states this was Dr. Nieto's recommendation.. Will follow with pt upon discharge. Pt will meet with Dr. Nieto on 08/31/21. Medication Compliance: Yes Side effects from medications: No Attending Groups: Yes Review of Systems Acute medical concerns: No Medical Review of Systems: unchanged Review of Systems Psychiatric: Reports no additional psychiatric complaints Mental Status Exam Mental Status Exam Patient Appearance: Appropriate Patient Orientation: Person, Place, Time and Situation Level of Consciousness: Awake and Alert Patient Behavior: Talkative and Good Eye Contact Mood Description: Apprehensive Affect Description: Apprehensive Patient Cognition Impaired: No Ability to Follow Directions: Good Speech Pattern: Spontaneous Speech Memory Description: Intact Hallucinations: None Delusions: Not Present Thought Process: Intact and Goal Oriented Thought Content: positive for Intact and positive for Goal Oriented Depressive Symptoms: Thoughts of /Suicide (denies) Judgement: Good Diagnostics Vital Signs (24Hr): Vital Signs - 24 hr 08/25/21 06:00 Temperature 97.7 F Pulse Rate 106 H Respiratory Rate 18 Blood Pressure 167/82 H Pulse Oximetry 92 BMI result Body Mass Index 51.5 Labs Results: 08/24/21 11:24 Labs: Laboratory Results - last 48 hr 08/24/21 08/24/21 08/25/21 06:16 11:24 06:12 Creatinine 1.00 Estim Creat Clear Calc 152.8 Estimated GFR > 60 POC Glucose 190 H 173 H Medications Medications Current Medications Acetaminophen (Acetaminophen 325 Mg Tablet) 650 mg PO Q6H PRN PRN Reason: Headache/Pain Mild Scale (1-3) Al Hydroxide/Mg Hydroxide (Magnesium Hydrox/Alum Hydrox 30 Ml Oral.Susp) 30 ml PO Q6H PRN PRN Reason: Heartburn/Nausea Alprazolam (Alprazolam 0.5 Mg Tablet) 2 mg PO QID PRN PRN Reason: anxiety Last Admin: 08/25/21 10:38 Dose: 2 mg Documented by: Amphetamine/Dextroamphetamine (Amphetamine Mixed Salts 20 Mg Tablet) 30 mg PO QID [facility] Last Admin: 08/25/21 16:45 Dose: 30 mg Documented by: Aripiprazole (Aripiprazole 20 Mg Tablet) 20 mg PO DAILY [facility] Last Admin: 08/25/21 08:39 Dose: 20 mg Documented by: Atorvastatin Calcium (Atorvastatin Calcium 10 Mg Tablet) 10 mg PO DAILY [facility] Last Admin: 08/25/21 08:39 Dose: 10 mg Documented by: Glipizide (Glipizide Xl 5 Mg Tab.Er.24) 5 mg PO DAILY [facility] Last Admin: 08/25/21 08:39 Dose: 5 mg Documented by: Hydroxyzine HCl (Hydroxyzine Hcl 25 Mg Tablet) 25 mg PO Q6H PRN PRN Reason: Anxiety Lisinopril (Lisinopril 20 Mg Tablet) 20 mg PO DAILY [facility]; Protocol Last Admin: 08/25/21 08:39 Dose: 20 mg Documented by: Magnesium Hydroxide (Milk Of Magnesia 30 Ml Oral.Susp) 30 ml PO DAILY PRN PRN Reason: Constipation Metformin HCl (Metformin Hcl 1,000 Mg Tablet) 1,000 mg PO BIDWM [facility] Last Admin: 08/25/21 16:46 Dose: 1,000 mg Documented by: Patient Own Med ( Lamotrigine Er 300mg ) 1 each PO DAILY [facility] Last Admin: 08/25/21 08:38 Dose: 1 each Documented by: Trazodone HCl (Trazodone Hcl 50 Mg Tablet) 50 mg PO BEDTIME PRN PRN Reason: Insomnia Venlafaxine HCl (Venlafaxine Hcl Er 75 Mg Cap.Er.24h) 225 mg PO DAILY [facility] Last Admin: 08/25/21 08:39 Dose: 225 mg Documented by: Ziprasidone (Ziprasidone 20 Mg Capsule) 20 mg PO BID PRN PRN Reason: agitation, violence Allergies Allergies Allergy/AdvReac Type Severity Reaction Status Date / Time chlorpromazine Allergy Mild Hives Verified 08/12/21 20:11 haloperidol [From Haldol] Allergy Mild Hives Verified 08/12/21 20:11 olanzapine [From Zyprexa] Allergy Mild Hives Verified 08/12/21 20:11 risperidone [From Risperdal] Allergy Mild Hives Verified 08/12/21 20:11 Assessment & Plan Assessment & Plan (1) Bipolar II disorder: Status: Acute Code(s): F31.81 - Bipolar II disorder (2) PTSD (post-traumatic stress disorder): Status: Acute Code(s): F43.10 - Post-traumatic stress disorder, unspecified (3) Cannabis use disorder, moderate, dependence: Status: Acute Code(s): F12.20 - Cannabis dependence, uncomplicated (4) Cocaine use disorder, moderate, dependence: Status: Acute Code(s): F14.20 - Cocaine dependence, uncomplicated (5) Borderline personality disorder: Status: Acute Code(s): F60.3 - Borderline personality disorder (6) Hypertension: Status: Acute Code(s): I10 - Essential (primary) hypertension (7) Diabetes mellitus: Status: Acute Code(s): E11.9 - Type 2 diabetes mellitus without complications (8) Hyperlipidemia: Status: Acute Code(s): E78.5 - Hyperlipidemia, unspecified (9) Morbid obesity: Status: Acute Code(s): E66.01 - Morbid (severe) obesity due to excess calories Plan 08/20/21-Continue behavioral plan of care Continue current medication regime-declines changes Continue to work with [facility] on treatment planning Continue to monitor medical parameters although pt declines interventions at this time. 08/21/21- Continue plan of care 08/22/21- Continue plan of care 08/23/21- Continue plan of care 08/24/21- Continue plan of care. DM will be in contact regarding resources to a ssist pt in discharge. 08/25/21: Continue plan of care. Support in transition/discharge I spent minutes with the patient and/or on the patient floor today, greater than?50% of which was spent counseling/coordinating care. Patient educated on: therapeutic strategies Informed Consent: understands Reason for contiued inpatient stay Substantial Risk for: harm to self, harm to others, inability to function and rapid decompensation
[2021-08-25 18:00] VITALS: BP 122/85; PULSE 81; RESP 16; TEMP 36.4; O2SAT 97
[2021-08-26 06:00] VITALS: BP 148/92; PULSE 114; RESP 16; TEMP 36.6; O2SAT 97
[2021-08-26] MEDS: ARIPiprazole 20 MG TABLET PO (08:09)
[2021-08-26] MEDS: Amphetamine Mixed Salts 20 MG TABLET 30 MG PO (08:09)
[2021-08-26] MEDS: glipiZIDE XL 5 MG TAB.ER.24 PO (08:09)
[2021-08-26] MEDS: lisinopriL 20 MG TABLET PO (08:09)
[2021-08-26] MEDS: Atorvastatin Calcium 10 MG TABLET PO (08:10)
[2021-08-26] MEDS: metFORMIN HCl 1,000 MG TABLET 1000 MG PO (08:10)
[2021-08-26] MEDS: Venlafaxine HCl ER 75 MG CAP.ER.24H 225 MG PO (08:10)
[2021-08-26] MEDS: ALPRAZolam 0.5 MG TABLET 2 MG PO (11:10)
--- NOTE | 2021-08-26 15:30 | P.DS_ITS ---
DS: Providers Provider Date of Service: 08/26/21 Date of admission: 08/12/21 19:51 Date of discharge: 08/26/21 Primary care physician: Unknown Physician Admitting clinician: Pascale Pedro Attending physician on admission: Pascale Pedro Consults: 08/12/21 20:17 Consult to Hospitalist Routine Consulting Provider: Hospitalist Reason For Exam: New admit from [facility] Attending physician on discharge: Pascale Pedro Discharging clinician: Pascale Pedro DS: Diagnosis Discharge Diagnosis (1) Bipolar II disorder: Status: Acute (2) PTSD (post-traumatic stress disorder): Status: Acute (3) Cannabis use disorder, moderate, dependence: Status: Acute (4) Cocaine use disorder, moderate, dependence: Status: Acute (5) Borderline personality disorder: Status: Acute (6) Hypertension: Status: Acute (7) Diabetes mellitus: Status: Acute (8) Hyperlipidemia: Status: Acute (9) Morbid obesity: Status: Acute DS: Medications Discharge Medications Home Medications: Previous Rx's Medication Instructions Recorded lamotrigine 300 mg tablet,extended 300 mg PO DAILY #30 tab 08/13/21 release 24 hr (Lamictal XR) atorvastatin 10 mg tablet 10 mg PO DAILY #30 tab 08/26/21 Mental Status Exam Mental Status Exam Patient Appearance: Appropriate Patient Orientation: Person, Place, Time and Situation Level of Consciousness: Awake, Alert and Follows Commands Patient Behavior: Talkative, Cooperative, Passive, Verbal Threats, Anxious and Good Eye Contact Mood Description: Apprehensive Affect Description: Constricted Patient Cognition Impaired: No Ability to Follow Directions: Good Speech Pattern: Spontaneous Speech Memory Description: Intact Hallucinations: None Delusions: Not Present Thought Process: Intact and Goal Oriented Thought Content: positive for Intact, positive for [place], positive for Circumstantial, positive for Goal Oriented and positive for Suicidal Ideation (he will verbalize, then retract, in an attempt to change plans, circumstances, express anger) Depressive Symptoms: Unhappiness and Low Self Esteem Judgement: Good Data Data Completed and Pending Completed studies during hospitalization [Text1]: 08/20/21 08/21/21 08/22/21 06:58 06:14 04:27 Creatinine Estim Creat Clear Calc Estimated GFR POC Glucose 252 H 176 H 227 H 08/23/21 08/24/21 08/24/21 06:17 06:16 11:24 Creatinine 1.00 Estim Creat Clear Calc 152.8 Estimated GFR > 60 POC Glucose 208 H 190 H 08/25/21 06:12 Creatinine Estim Creat Clear Calc Estimated GFR POC Glucose 173 H DS: Summary Hospital Course Hospital Course: Admission to adult psychiatry to address symptoms of bipolar II disorder, borderline personality disorder, antisocial personality disorder, cocaine use disorder, cannabis use disorder. Medically, Ad has a history of obesity, hyperlipidemia, diabetes and hypertension. There is a reported hx of seizure in 2012 after ECT and a reported TIA in 2014. Care plan, medication regime and out patient plan of care prior to admission were reviewed. Contact was made with Ad's out patient prescriber, Dr. Nieto, who prescribes pt Xanax 2 mg qid prn; Adderall XR 30 mg qid, Abilify 20 mg daily, Venlafaxine XR 225 mg daily and Lamictal XR 300 mg daily. Pt refused any changes to this regime during admission. Medically he is prescribed Lipitor 10 mg daily, Glucotrol XL 5 mg daily, Zestril 20 mg daily, and Glucophage 1000 mg bid. These were continued as well. Ad recompensated quickly upon admission. Diagnostics were completed and he declined any further medical interventions. Behavioral symptoms were present and addressed. Ad requested assistance in re-connecting with [facility] services, be provided housing in [place], assigned an ACCS team, be considered for a senior care/supported housing and be assisted in finding work. He also requested to keep his chosen out patient team. Several contacts were made with [facility] who were very willing to assist Ad, but needed to know where he wanted to live, what services he felt were most needed and allow them the time to make accomodations. His insurance, [employer], was very willing and supportive of Ad during his stay as well. He spoke with them several times per day, asking for their support and assistance which were provided with great generosity. During the admission it is noted patterns of behavior which were detrimental to Ad making alliances with others. When requests were not immediately met and limits were set, Ad became verbally assaultive to staff, [facility] and [facility], leaving inappropriate messages on voice mails and exhibiting aggressive language to the staff. He also made superficial scratches on his neck, called [facility] to report he had a gun in his family home and intended to use it and threatened to overdose on medication if discharged. Each instance was addressed with education and process sessions. In these sessions, Ad denied any intent to harm himself or others, stating he makes these statements due to frustration and anger. Ad appeared to respond in a positive manner to these sessions, however, immediately returned to these behaviors upon completion. [facility] recommended halfway admission while they organized requested services for dA. Discharge was scheduled for 08/26/21-Ad was given the option of [facility] halfway in [place] or [facility] in [place]. He was provided with a cab to [facility] where Dr. Nieto had sent in his medication refills and has chosen [facility]. Ad will follow up with Dr. Nieto on 08/31/21 for medication appt and is in the process of discussion a transfer of out patient care to [facility], , a discussion which he will continue with Dr. Nieto. Time spent discussing smoking cessation with patient: 3 to 10 minutes Status at Discharge Functional status at discharge: independent ambulation Overall status at discharge: patient is back to baseline Time Spent with Patient Time attestation: Total time spent providing and/or coordinating discharge services: 60 Time spent: Greater than 30 minutes Discharge Plan Discharge Patient Disposition: Penitentiary Discharge Diagnosis: Bipolar Disorder, type II PTSD Borderline Personality Disorder Antisocial Personality Disorder Cocaine use disorder Cannabis use disorder Obesity Hyperlipidemia Diabetes Hypertension Referrals: Sam Farias LCSW [Other] - 08/27/21 11:00 am (Follow-up appointment with outpatient therapy provider) [facility] [Other] - 08/20/21 4:00 pm (Homeless Penitentiary Patient may self present for emergency Penitentiary due to homelessness) [facility] [Other] - 08/20/21 4:00 pm (Homeless Penitentiary Patient mat self-present for Penitentiary placement due to Homelessness) Jt Nieto [Other] - 08/31/21 11:00 am (Appointment with outpatient psychiatric provider.) Discharge Medications: New lamotrigine [Lamictal XR] 300 mg tablet extended release 24hr 300 mg PO DAILY Qty: 30 1RF atorvastatin 10 mg Tablet 10 mg PO DAILY Qty: 30 0RF Discharge Orders: Discharge Order (Routine); Ordered 08/26/21 Ordered By: Pascale Pedro Diet: diabetic diet Activity on Discharge: As tolerated Stand Alone Forms: Patient Portal Discharge page, Community Support Care Plan Goals: Mood stabilization Abstinence from use of cocaine, cannabis and other drugs and alcohol Begin to work with your DM team on housing and future goals Health Concerns: Bipolar Disorder II PTSD Borderline Personality Disorder Antisocial Personality Disorder Cocaine Use Disorder Cannabis Use Disorder Obesity Hyperlipidemia Diabetes Hypertension Plan of Treatment: Attend follow up appointments Work with [facility] on goals/plans for housing, relocation Medications as directed We have discussed your medications with [facility]. They have prescriptions waiting for you for Xanax, Adderall, Abilify, Glucotrol XL, Zestril, Glucophage and Venlafaxine. Lipitor has been sent in as you were out they report. Assessment: Pt spent last evening and this morning with threats to harm the staff, name calling, calling DM and [facility] and leaving verbally abusive messages, threatening [facility]BS. In our discussion with him before discharge he was tearful, alert, oriented, non-psychotic and initiatlly threatening but responsive when discussion of the inefficacy of this pattern of behavior was discussed in terms of meeting his halfway goals. His most important goal is to be available and a reasonable role model for his 14 yo son. He is satisfied with [facility] and their agreement to work with him and would like to remain in hospital for the halfway but agrees that he is not in need of hospital level of care as medications are in place and behaviors are becoming more detrimental with the longer length of stay. Discharge Date/Time: 08/26/21 11:55
== END 2021-08-26 11:55 | disposition home or self-care (01) | DRG 885 ==
PROVIDERS: Registered Nurse; Admitting Provider Psychiatry & Neurology Psychiatry; Visit Provider Clinical Nurse Specialist Psychiatric/Mental Health, Adult
DX: F31.81 Bipolar II disorder (principal); F14.20 Cocaine dependence, uncomplicated; Z68.43 Body mass index [BMI] 50.0-59.9, adult; E66.01 Morbid (severe) obesity due to excess calories; F43.10 Post-traumatic stress disorder, unspecified; Z23 Encounter for immunization; F60.3 Borderline personality disorder; L40.9 Psoriasis, unspecified; F12.20 Cannabis dependence, uncomplicated; F10.21 Alcohol dependence, in remission; E11.9 Type 2 diabetes mellitus without complications; E78.5 Hyperlipidemia, unspecified; I10 Essential (primary) hypertension; Z91.51 Personal history of suicidal behavior; Z79.899 Other long term (current) drug therapy
CPT/HCPCS: 36415; 80061; 80076; 82306; 82565; 82607; 82746; 82947; 83036; 83735; 84439; 84443; 90686; 93005